=== PATIENT | male | born 1940 | race Caucasian/White ===

== ENCOUNTER 2016-09-02 19:00 | Emergency (ER) | payer MEDICARE, OTHER ==
[2016-09-02] MEDS ORDERED: Sodium Chloride 0.9% 5 ML Syringe FLUSH PRN (19:19)
[2016-09-02] MEDS ORDERED: Morphine 4 MG/ML Syringe IVPUSH ONE (19:20)
[2016-09-02] MEDS ORDERED: Ondansetron 4 MG/2 ML SDV IVPUSH ONE (19:20)
--- NOTE | 2016-09-02 19:26 | EDM.PDOC ---
ED HPI Trauma - General Chief Complaint: Lower Extremity Injury/Pain Stated Complaint: FALL--LEFT HIP PAIN Time Seen by Provider: 09/02/16 19:18 Source: Reports: Patient, Family () History Limitations: Reports: No limitations - History of Present Illness INITIAL COMMENTS - FREE TEXT/NARRATIVE: PT STATES HE FELL WHILE TRYING TO EXIT CAR AND LANDED ON LEFT SIDE. PAIN TO LEFT HIP, LOW BACK, AND LEFT ELBOW. DENIES HEAD INJURY, CP, SOB, DIZZINESS, OR GONZALEZ. Occurred When: just prior to arrival Occurred Where: home Method of Injury: fall Severity: moderate Pain/Injury Location: Reports: upper extremity, left, lower extremity, left Consciousness: Reports: no loss of consciousness Associated Symptoms: Reports: no other symptoms Allergies/ADRs: Allergies piperacillin sodium [From Zosyn] Allergy (Verified 09/02/16 20:08) Rash Pkzzwpi-Ije-Haj Reductase Inhibitor Allergy (Verified 09/02/16 20:08) Liver Problems tazobactam sodium [From Zosyn] Allergy (Verified 09/02/16 20:08) Rash chloroprep Allergy (Unknown, Uncoded 09/02/16 20:08) Rash Home Medications: Ambulatory Orders Albuterol [Ventolin HFA] 2 puff INH Q4H PRN 04/25/13 [Confirmed 07/11/15] Fluticasone Propionate [Flovent HFA 110 MCG] 2 puff INH BID 04/25/13 [Confirmed 07/11/15] Ipratropium/Albuterol Sulfate [Duoneb 0.5 MG-3 MG/3 ML] 3 ml NEB QID PRN [Confirmed 07/11/15] Magnesium 1,000 mg PO DAILY 04/25/13 [Confirmed 07/11/15] Mutivitamin* 1 tab PO DAILY 04/25/13 [Confirmed 07/11/15] Sennosides/Docusate Sodium [Senna S Tablet] 2 tab PO BID PRN 04/29/13 [ Confirmed 07/11/15] Sertraline HCl 100 mg PO DAILY 04/29/13 [Confirmed 07/11/15] Levothyroxine 25 mcg PO ACBREAKFAST 04/28/15 [Confirmed 07/11/15] Omeprazole 20 mg PO DAILY 04/28/15 [Confirmed 07/11/15] Trospium Chloride [Trospium Chloride ER] 60 mg PO DAILY 04/28/15 [Confirmed 03/17] Acetaminophen [Tylenol] 650 mg PO Q6H PRN 07/11/15 [Confirmed 07/11/15] Aspirin 81 mg PO DAILY 07/11/15 [Confirmed 07/11/15] Amoxicillin/Potassium Clav [Amox-Clav 875-125 mg Tablet] 1 each PO BID #90 [Confirmed 07/11/15] hydrOXYzine HCl [Atarax] 25 mg PO Q8HR PRN #25 tablet 07/14/15 Tamsulosin [Flomax] 0.4 mg PO DAILY 09/02/16 [Confirmed 09/02/16] Past Medical History HEENT History: Reports: Hard of hearing, Impaired vision Cardiovascular History: Reports: Pacemaker Other Cardiovascular History: h/o infected pacemaker post liver abcess; 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 Respiratory History: Reports: Asthma, Bronchitis, recurrent Gastrointestinal History: Reports: Cholelithiasis Genitourinary History: Reports: BPH Other Musculoskeletal History: unstable on feet majority of time uses for balance Neurological History: Reports: Vertigo Psychiatric History: Reports: Depression Endocrine/Metabolic History: Reports: Diabetes, type II Hematologic History: Reports: Anemia - Past Surgical History Cardiovascular Surgical History: Reports: Pacer GI Surgical History: Reports: Cholecystectomy Social & Family History - Tobacco Use Smoking Status *Q: Former Smoker Years of Tobacco use: 17 Packs/Tins Daily: 1 Used Tobacco, but Quit: Yes Month Tobacco Last Used: May Second Hand Smoke Exposure: No - Alcohol Use Days Per Week of Alcohol Use: 1 Number of Drinks Per Day: 1 Total Drinks Per Week: 1 - Recreational Drug Use Recreational Drug Use: No - Living Situation & Occupation Living situation: Reports: , with spouse Occupation: retired Review of Systems - Review of Systems Review Of Systems: ROS reveals no pertinent complaints other than HPI. Constitutional: Reports: no symptoms Eyes: Reports: no symptoms Ears: Reports: no symptoms Nose: Reports: no symptoms Mouth/Throat: Reports: no symptoms Respiratory: Reports: No Symptoms Cardiovascular: Reports: no symptoms GI/Abdominal: Reports: No symptoms Genitourinary: Reports: no symptoms Musculoskeletal: Reports: arm pain, back pain, leg pain Skin: Reports: bruising, wound (ABRASION TO LEFT ELBOW) Neurological: Reports: No Symptoms Psychiatric: Reports: no symptoms Trauma Exam - Physical Exam Exam: See Below Exam Limited By: No limitations General Appearance: Reports: alert, WD/WN, no apparent distress Head: Reports: atraumatic, normocephalic Eyes: bilateral eye: normal inspection Ears: Reports: normal external exam, normal canal Nose: Reports: normal inspection, no blood Throat/Mouth: Reports: Normal inspection, Normal oropharynx, No airway compromise Neck: Reports: non-tender, full range of motion, normal alignment, normal inspection Respiratory Exam: Reports: no respiratory distress, lungs clear, normal breath sounds, no accessory muscle use, chest non-tender Cardiovascular: Reports: regular rate, rhythm GI/Abdominal: Reports: soft, non tender, no distention Back: Reports: paraspinal tenderness, other (DENIES SADDLE ANESTHESIA, URINARY OR BOWEL INCONT). Denies: CVA tenderness (R), CVA tenderness (L) Extremities: Reports: no pedal edema, pain with movement, tenderness (LEFT HIP / LEFT ELBOW / PELVIS STABLE), unable to bear weight, other (NO NEUROVASCULAR DEFICIT OR COMPARTMENT SYNDROME NOTED.). Denies: no evidence of injury, normal range of motion, non-tender Neurologic: Reports: no motor/sensory deficits, alert, normal mood/affect, oriented x 3 Skin: Reports: Normal color, Warm/dry, Other (ABRASION TO POSTERIOR LEFT ELBOW) - [place] Coma Score Best Eye Response ([place]): (4) open spontaneously Best Verbal Response ([place]): (5) oriented Best Motor Response ([place]): (6) obeys commands [place] Total: 15 Course - Orders/Labs/Meds Orders: Active Orders 24 hr Category Date Time Status Peripheral IV Care [RC] . DIRECTED Care 09/02/16 19:20 Ordered Elbow 2V Lt [CR] Stat Exams 09/02/16 19:19 Ordered Hip Min 2V or 3V w Pelvis Lt [CR] Stat Exams 09/02/16 19:19 Ordered Morphine Med 09/02/16 19:20 Once 4 mg IVPUSH ONETIME ONE Ondansetron [Zofran] Med 09/02/16 19:20 Once 4 mg IVPUSH ONETIME ONE Sodium Chloride 0.9% [Syrex Flush] Med 09/02/16 19:19 Ordered 5 ml FLUSH Q8HR PRN Peripheral IV Insertion Adult [OM.PC] Routine Oth 09/02/16 19:19 Ordered - Radiology Interpretation Free Text/Narrative:: ACUTE DISPLACED LEFT FEMORAL NECK FRACTURE - Re-Assessments/Exams Free Text/Narrative Re-Assessment/Exam: 09/02/16 20:12 PT AFEBRILE, NONTOXIC APPEARING, PAIN CONTROLLED. DISCUSSED CASE WITH DR SANTANA, HOSPITALIST AT [facility]. WILL ACCEPT TRANSFER OF CARE Departure - Departure Time of Disposition: 20:15 Disposition: DC/Tfer to Acute Hospital 02 Condition: fair Clinical Impression: Hip fracture, intertrochanteric Qualifiers: Encounter type: initial encounter Fracture type: closed Fracture alignment: displaced Laterality: left Qualified Code(s): S72.142A - Displaced intertrochanteric fracture of left femur, initial encounter for closed fracture - My Orders Last 24 Hours: My Active Orders 09/02/16 19:19 Elbow 2V Lt [CR] Stat Hip Min 2V or 3V w Pelvis Lt [CR] Stat Sodium Chloride 0.9% [Syrex Flush] 5 ml FLUSH Q8HR PRN Peripheral IV Insertion Adult [OM.PC] Routine 09/02/16 19:20 Peripheral IV Care [RC] . DIRECTED Morphine 4 mg IVPUSH ONETIME ONE Ondansetron [Zofran] 4 mg IVPUSH ONETIME ONE - Assessment/Plan Last 24 Hours: My Active Orders 09/02/16 19:19 Elbow 2V Lt [CR] Stat Hip Min 2V or 3V w Pelvis Lt [CR] Stat Sodium Chloride 0.9% [Syrex Flush] 5 ml FLUSH Q8HR PRN Peripheral IV Insertion Adult [OM.PC] Routine 09/02/16 19:20 Peripheral IV Care [RC] . DIRECTED Morphine 4 mg IVPUSH ONETIME ONE Ondansetron [Zofran] 4 mg IVPUSH ONETIME ONE Assessment:: LEFT HIP FRACTURE Plan: TRANSFER TO [facility]
[2016-09-02 20:14] VITALS: BP 137/76
[2016-09-02] MEDS ORDERED: Morphine 2 MG/ML Syringe IVPUSH ONE (20:22)
== END 2016-09-02 20:45 ==
LOC: KA.ED 19:00
DX: S72.142A Displaced intertrochanteric fracture of left femur, initial encounter for closed fracture (principal); J45.909 Unspecified asthma, uncomplicated; F32.9 Major depressive disorder, single episode, unspecified; E11.9 Type 2 diabetes mellitus without complications; D64.9 Anemia, unspecified; Z90.49 Acquired absence of other specified parts of digestive tract; Z87.891 Personal history of nicotine dependence; Z88.8 Allergy status to other drugs, medicaments and biological substances; Z79.82 Long term (current) use of aspirin; Z79.899 Other long term (current) drug therapy; W19.XXXA Unspecified fall, initial encounter
CPT/HCPCS: 36415; 72100; 73070; 73502; 80053; 85025; 85610; 85730; 96374; 96375; 96376; 99285; J2270; J2405

== ENCOUNTER 2016-09-06 15:34 | Inpatient (IN) | payer MEDICARE, OTHER ==
[2016-09-07] MEDS ORDERED: oxyCODONE 5 MG Tab PO PRN (13:46)
[2016-09-07] MEDS: Gabapentin 100 MG Cap PO SCH ×2 (16:03→22:20)
[2016-09-07] MEDS: Ferrous Sulfate 325 MG Tab PO SCH (18:30)
[2016-09-07] MEDS ORDERED: Albuterol/Ipratropium 3.0-0.5 MG/3 ML Neb Soln NEB PRN (20:53)
[2016-09-07] MEDS ORDERED: Amoxicillin/Clavulanate K 875-125 MG Tab PO SCH (21:00)
[2016-09-07] MEDS ORDERED: Albuterol HFA 18 Gm Inhaler INH PRN (21:07)
[2016-09-07] MEDS: Fluticasone Propionate 110 MCG/Puff 12 GM Inhaler INH SCH (21:46)
[2016-09-07] MEDS: Tamsulosin 0.4 MG Cap.ER PO SCH (22:20)
[2016-09-08] MEDS: Levothyroxine 25 MCG Tab PO SCH (06:54)
[2016-09-08] MEDS: Omeprazole 20 MG Cap.CR PO SCH (06:54)
[2016-09-08] MEDS ORDERED: Tamsulosin 0.4 MG Cap.ER PO SCH (09:00)
[2016-09-08] MEDS ORDERED: TROSPIUM 60 MG PO SCH (09:00)
[2016-09-08] MEDS: Polyethylene Glycol 3350 Powder 17 GM Packet PO SCH (09:34)
[2016-09-08] MEDS: Enoxaparin 40 MG/0.4 ML Syringe SUBCUT SCH (09:34)
[2016-09-08] MEDS: Ferrous Sulfate 325 MG Tab PO SCH ×2 (09:34→18:23)
[2016-09-08] MEDS: Gabapentin 100 MG Cap PO SCH ×3 (09:34→20:36)
[2016-09-08] MEDS: Sertraline 50 MG Tab PO SCH (09:41)
[2016-09-08] MEDS: Fluticasone Propionate 110 MCG/Puff 12 GM Inhaler INH SCH ×2 (09:42→20:37)
[2016-09-08] MEDS: Multivitamins with Minerals/Iron/Folic Acid/Lycopene Tab PO SCH (09:42)
[2016-09-08] MEDS: Amoxicillin/Clavulanate K 875-125 MG Tab PO SCH ×2 (09:42→18:23)
[2016-09-08] MEDS: Aspirin 81 MG Tab.Chew PO SCH (09:42)
[2016-09-08] MEDS: oxyCODONE 5 MG Tab PO PRN (11:32)
[2016-09-08] MEDS: Acetaminophen 325 MG Tab PO PRN (11:33)
--- NOTE | 2016-09-08 11:55 | PCM.HP ---
H&P History of Present Illness - General Date of Service: 09/08/16 Admit Problem/Dx: Admission Diagnosis/Problem Admission Diagnosis/Problem Fracture of neck of femur Source of Information: Patient, Family, Old records, RN History Limitations: Reports: No limitations - History of Present Illness Initial Comments - Free Text/Narative: This 76-year-old gentleman was placed in swing bed status yesterday for rehabilitation do to hip replacement after subsequent fracture. Gentry was initially seen at [facility] after a fall and injured his left side of the body. The patient was coming out of the car and made a sudden twist and had a fall on the left side and injured his left hip-- imaging done demonstrated left femur neck fracture. During his hospital stay postoperatively he had acute blood loss anemia. Hemoglobin dropped to 7.5 from his baseline of 13--with weakness and he received one unit of packed red blood cells. posttransfusion hemoglobin improved to 9.5. Left Hip Pain Score (Numeric/FACES): 3 - Related Data Allergies/Adverse Reactions: Allergies Allergy/AdvReac Type Severity Reaction Status Date / Time piperacillin sodium Allergy Rash Verified 09/07/16 11:03 [From Zosyn] Mwfeyax-Opj-Adk Reductase Allergy Liver Verified 09/07/16 11:03 Inhibitor Problems tazobactam sodium Allergy Rash Verified 09/07/16 11:03 [From Zosyn] chloroprep Allergy Unknown Rash Uncoded 09/07/16 11:03 Home Medications: Home Meds Albuterol [Ventolin HFA] 2 puff INH Q4H PRN 04/25/13 [History] Fluticasone Propionate [Flovent HFA 110 MCG] 2 puff INH BID 04/25/13 [History] Ipratropium/Albuterol Sulfate [Duoneb 0.5 MG-3 MG/3 ML] 3 ml NEB QID PRN [History] Magnesium 1,000 mg PO DAILY 04/25/13 [History] Mutivitamin* 1 tab PO DAILY 04/25/13 [History] Sertraline HCl 100 mg PO DAILY 04/29/13 [History] Levothyroxine 25 mcg PO ACBREAKFAST 04/28/15 [History] Omeprazole 20 mg PO ACBREAKFAST 04/28/15 [History] Trospium Chloride [Trospium Chloride ER] 60 mg PO DAILY 04/28/15 [History] Aspirin 81 mg PO DAILY 07/11/15 [History] Amoxicillin/Potassium Clav [Amox-Clav 875-125 mg Tablet] 1 each PO BID #90 [Rx] Tamsulosin [Flomax] 0.4 mg PO DAILY 09/02/16 [History] Past Medical History HEENT History: Reports: Hard of hearing, Impaired vision Cardiovascular History: Reports: Pacemaker Other Cardiovascular History: h/o infected pacemaker post liver abcess; 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 Respiratory History: Reports: Asthma, Bronchitis, recurrent, COPD Gastrointestinal History: Reports: Cholelithiasis, GI bleed, Hemorrhoids Genitourinary History: Reports: BPH Other Musculoskeletal History: unstable on feet majority of time uses for balance Neurological History: Reports: Vertigo Psychiatric History: Reports: Depression Endocrine/Metabolic History: Reports: Other (see below) Other Endocrine/Metabolic History: has hx DM II but since losing weight, does not need to take any meds for it Hematologic History: Reports: Anemia Dermatologic History: Reports: Other (see below) Other Dermatologic History: scattered bruises to bilat elbows and forearms from fall; 2 healing abrasions to left elbow - Infectious Disease History Infectious Disease History: Reports: Chicken pox, Measles, Mumps - Past Surgical History Cardiovascular Surgical History: Reports: Pacer GI Surgical History: Reports: Cholecystectomy Musculoskeletal Surgical History: Reports: Joint replacement, Other (see below) Other Musculoskeletal Surgeries/Procedures:: left hip replacement after a displaced left femoral neck fracture on 09/03 Social & Family History - Family History HEENT: Reports: None Cardiac: Reports: None Respiratory: Reports: Other (see below) (Father of emphysema, had brother of it is in the) GI: Reports: Other (see below) (Sister with a ruptured colon: History) : Reports: None OBGYN: Reports: None Musculoskeletal: Reports: None Neurological: Reports: None Psychiatric: Reports: None Endocrine/Metabolic: Reports: None Hematologic: Reports: None Immunologic: Reports: None Dermatologic: Reports: None Oncologic: Reports: None - Tobacco Use Smoking Status *Q: Former Smoker Years of Tobacco use: 17 Packs/Tins Daily: 1 Used Tobacco, but Quit: Yes Month Tobacco Last Used: May Second Hand Smoke Exposure: No - Caffeine Use Caffeine Use: Reports: Coffee - Alcohol Use Days Per Week of Alcohol Use: 1 Number of Drinks Per Day: 1 Total Drinks Per Week: 1 - Recreational Drug Use Recreational Drug Use: No - Living Situation & Occupation Living situation: Reports: , with spouse Occupation: retired H&P Review of Systems - Review of Systems: Review Of Systems: See Below General: Denies: Decreased Appetite HEENT: Reports: no symptoms Pulmonary: Reports: No Symptoms Cardiovascular: Reports: no symptoms Gastrointestinal: Denies: Abdominal pain, Bloody stool, Constipation, Diarrhea, Decreased appetite, Difficulty swallowing, Nausea, Stool incontinence, Vomiting Genitourinary: Reports: no symptoms Musculoskeletal: Reports: other (Left hip pain--mild) Skin: Reports: pallor Psychiatric: Reports: no symptoms Neurological: Reports: Pre-Existing Deficit, Weakness. Denies: Numbness, Paresthesia Hematologic/Lymphatic: Reports: anemia Immunologic: Reports: no symptoms Exam - Exam Exam: See Below - Vital Signs Vital Signs: Last Vital Signs Temp 97.3 F 09/08/16 07:00 Pulse 78 09/08/16 07:00 Resp 22 H 09/08/16 07:00 BP 134/71 09/08/16 07:00 Pulse Ox 96 09/08/16 07:30 Weight: 199 lb 12.8 oz - Exam Quality Assessment: No: supplemental oxygen General: alert, oriented, 4 HEENT: PERRLA, Hearing intact, Mucosa moist & pink, Nares patent, Normal nasal septum, Posterior pharynx clear, Conjunctiva clear, EOMI, EACs clear, TMs clear Neck: supple, trachea midline, 2 Lungs: Clear to auscultation, Normal respiratory effort Cardiovascular: regular rate, regular rhythm Abdomen: Normal Bowel Sounds, Soft (Male) Exam: Deferred Rectal (Males) Exam: Deferred Back Exam: No: CVA tenderness (L), CVA tenderness (R), muscle spasm Extremities: cool Peripheral Pulses: 2+: radial (L), radial (R) Skin: warm, dry, intact, incision (Miky left hip contact) Neurological: cranial nerves intact, reflexes equal bilateral Neuro Extensive - Mental Status: alert, oriented x3, normal mood/affect, normal cognition Neuro Extensive - Motor, Sensory, Reflexes: CN II-XII intact, normal gait, normal reflexes Psychiatric: alert, normal affect, normal mood, other (Spouse in with patient-- excellent family support) - Patient Data Lab Results last 24 hrs: Laboratory Results - last 24 hr 09/07/16 09/07/16 09/08/16 Range/Units 17:33 22:23 06:52 POC Glucose 130 H 171 H 114 H (74-106) mg/dl *Q Meaningful Use (ADM) - VTE *Q VTE Criteria *Q: - Stroke *Q Stroke Criteria *Q: - AMI *Q AMI Criteria *Q: Problem List Initiated/Reviewed/Updated: Yes Orders Last 24hrs: Active Orders 24 hr Category Date Time Status Patient Status [ADT] Routine ADT 09/07/16 13:46 Ordered Ambulate [RC] .PRN Care 09/07/16 13:46 Active Blood Glucose Check, Bedside [RC] 0700,1130,1730,2100 Care 09/07/16 13:46 Active Communication Order [RC] 0900 Care 09/07/16 15:50 Active Communication Order [RC] DAILY Care 09/07/16 14:15 Inactive Communication Order [RC] DAILY Care 09/07/16 14:15 Inactive Dressing Change [Wound Care] [RC] 0900 Care 09/08/16 09:00 Active Intake and Output [RC] 0600,1400,2200 Care 09/07/16 13:53 Active Oxygen Therapy [RC] .PRN Care 09/07/16 13:46 Active Up With Assistance [RC] .PRN Care 09/07/16 13:46 Active Vital Signs [RC] 0700,1500 Care 09/07/16 13:46 Active PT Evaluation and Treatment [CONS] Routine Cons 09/07/16 13:46 Active Regular Diet [DIET] Diet 09/08/16 Lunch Active Acetaminophen [Tylenol] Med 09/07/16 13:46 Active 650 mg PO Q6H PRN Albuterol [Ventolin HFA] Med 09/07/16 21:07 Active 0 gm INH Q4H PRN Albuterol/Ipratropium [DuoNeb 3.0-0.5 MG/3 ML] Med 09/07/16 20:53 Active 3 ml NEB QID PRN Amoxicillin/Clavulanate K [Augmentin 875 MG/125 MG] Med 09/08/16 09:00 Active 1 tab PO 0900,1800 Aspirin Med 09/08/16 09:00 Active 81 mg PO DAILY Codeine/guaiFENesin [Robitussin AC] Med 09/07/16 14:16 Active 10 ml PO Q4H PRN Docusate Sodium/Sennosides [Senna Plus] Med 09/08/16 09:00 Active 2 tab PO DAILY Enoxaparin [Lovenox] Med 09/08/16 09:00 Active 40 mg SUBCUT DAILY FA/Lycopene/Lut/MV,Ca,Iron,Min [Centrum] Med 09/08/16 09:00 Active 1 tab PO DAILY Ferrous Sulfate Med 09/07/16 18:00 Active 325 mg PO BIDMEALS Fluticasone Propionate [Flovent HFA 110 MCG] Med 09/07/16 21:00 Active 0 gm INH BIDRT Gabapentin [Neurontin] Med 09/07/16 15:00 Active 100 mg PO TID Levothyroxine Med 09/08/16 07:00 Active 25 mcg PO ACBREAKFAST Magnesium Oxide Med 09/08/16 09:00 Active 1,000 mg PO DAILY Omeprazole Med 09/08/16 07:00 Active 20 mg PO ACBREAKFAST Polyethylene Glycol 3350 [MiraLAX] Med 09/08/16 09:00 Active 17 gm PO DAILY Sertraline [Zoloft] Med 09/08/16 09:00 Active 100 mg PO DAILY Tamsulosin [Flomax] Med 09/07/16 21:54 Active 0.4 mg PO 1800 Trospium [Sanctura XR 24 Hr] Med 09/08/16 07:00 Active 60 mg PO 0700 oxyCODONE Med 09/07/16 13:46 Active 5 - 10 mg PO Q4H PRN Glucose Management Sub Q Reflex [OM.PC] Click To Edit Oth 09/07/16 13:46 Ordered Ice Therapy [OM.PC] Routine Oth 09/07/16 14:18 Ordered Resuscitation Status Routine Resus Stat 09/07/16 13:46 Ordered Medication Orders Acetaminophen (Tylenol) 650 mg PO Q6H PRN PRN Reason: Pain (Mild 1-3)/fever Last Admin: 09/08/16 11:33 Dose: 650 mg Albuterol (Ventolin Hfa) 0 gm INH Q4H PRN PRN Reason: Shortness of Breath Albuterol/Ipratropium (Duoneb 3.0-0.5 Mg/3 Ml) 3 ml NEB QID PRN PRN Reason: Wheezing Amoxicillin/Clavulanate Potassium (Augmentin 875 Mg/125 Mg) 1 tab PO 0900,1800 [facility] Last Admin: 09/08/16 09:42 Dose: 1 tab Aspirin (Aspirin) 81 mg PO DAILY [facility] Last Admin: 09/08/16 09:42 Dose: 81 mg Enoxaparin Sodium (Lovenox) 40 mg SUBCUT DAILY [facility] Last Admin: 09/08/16 09:34 Dose: 40 mg Ferrous Sulfate (Ferrous Sulfate) 325 mg PO BIDMEALS [facility] Last Admin: 09/08/16 09:34 Dose: 325 mg Admin: 09/07/16 18:30 Dose: 325 mg Fluticasone Propionate (Flovent Hfa 110 Mcg) 0 gm INH BIDRT [facility] Last Admin: 09/08/16 09:42 Dose: 2 puff Admin: 09/07/16 21:46 Dose: Not Given Gabapentin (Neurontin) 100 mg PO TID [facility] Last Admin: 09/08/16 09:34 Dose: 100 mg Admin: 09/07/16 22:20 Dose: 100 mg Admin: 09/07/16 16:03 Dose: 100 mg Guaifenesin/Codeine Phosphate (Robitussin Ac) 10 ml PO Q4H PRN PRN Reason: Cough Levothyroxine Sodium (Levothyroxine) 25 mcg PO ACBREAKFAST [facility] Last Admin: 09/08/16 06:54 Dose: 25 mcg Magnesium Oxide (Magnesium Oxide) 1,000 mg PO DAILY [facility] Multivitamins/Minerals (Centrum) 1 tab PO DAILY [facility] Last Admin: 09/08/16 09:42 Dose: 1 tab Omeprazole (Omeprazole) 20 mg PO ACBREAKFAST [facility] Last Admin: 09/08/16 06:54 Dose: 20 mg Oxycodone HCl (Oxycodone) 5 - 10 mg PO Q4H PRN PRN Reason: mod pain (4-6); Severe (7-10) Last Admin: 09/08/16 11:32 Dose: 5 mg Polyethylene Glycol (Miralax) 17 gm PO DAILY [facility] Last Admin: 09/08/16 09:34 Dose: Not Given Senna/Docusate Sodium (Senna Plus) 2 tab PO DAILY [facility] Last Admin: 09/08/16 09:35 Dose: 2 tab Sertraline HCl (Zoloft) 100 mg PO DAILY [facility] Last Admin: 09/08/16 09:41 Dose: 100 mg Tamsulosin HCl (Flomax) 0.4 mg PO 1800 [facility] Last Admin: 09/07/16 22:20 Dose: 0.4 mg Trospium (Sanctura Xr 24 Hr) 60 mg PO 0700 [facility] Assessment/Plan Comment:: HISTORY OF PRESENT ILLNESS This 76-year-old gentleman was placed in swing bed status yesterday for rehabilitation do to hip replacement after subsequent fracture. Gentry was initially seen at [facility] after a fall and injured his left side of the body. The patient was coming out of the car and made a sudden twist and had a fall on the left side and injured his left hip-- imaging done demonstrated left femur neck fracture. During his hospital stay postoperatively he had acute blood loss anemia. Hemoglobin dropped to 7.5 from his baseline of 13--with weakness and he received one unit of packed red blood cells. posttransfusion hemoglobin improved to 9.5. PT notes; Pt was independent with transfer supine to seated edge of bed. He was safe with amb CGAx1. Cuing was needed corrected step to gait. ASSESSMENT/PLAN Left femur neck fracture, s/p total hip arthroplasty--do to mechanical fall, here at [facility] swing bed for orthopedic rehabilitation. Anemia, due to blood loss, status post transfusion; post-transfusion hemoglobin improved to 9.5. Will closely monitor Chronic hyperkalemia on discharge the patient was placed on strict low potassium diet however patient is refusing this. We'll monitor this very carefully. DVT prophylaxis, will continue with enoxaparin x 14 more days. SECONDARY DIAGNOSIS Mixed hyperlipidemia Diabetes mellitus Chronic kidney disease Cardiac pacemaker History of endocarditis Recurrent cholangitis--elevated liver enzymes--will assess this week GERD Hypothyroidism, acquired Panlobular emphysema BPH
[2016-09-08] MEDS: Magnesium Oxide 500 MG Tab PO SCH (11:57)
[2016-09-08] MEDS: TROSPIUM 60 MG PO SCH (14:15)
[2016-09-08] MEDS: Tamsulosin 0.4 MG Cap.ER PO SCH (18:23)
[2016-09-09] MEDS: oxyCODONE 5 MG Tab PO PRN ×3 (06:24→22:36)
[2016-09-09] MEDS: Levothyroxine 25 MCG Tab PO SCH (06:25)
[2016-09-09] MEDS: Omeprazole 20 MG Cap.CR PO SCH (06:26)
[2016-09-09] MEDS: TROSPIUM 60 MG PO SCH (06:27)
[2016-09-09] MEDS: Ferrous Sulfate 325 MG Tab PO SCH ×2 (09:33→18:15)
[2016-09-09] MEDS: Aspirin 81 MG Tab.Chew PO SCH (09:34)
[2016-09-09] MEDS: Multivitamins with Minerals/Iron/Folic Acid/Lycopene Tab PO SCH (09:34)
[2016-09-09] MEDS: Amoxicillin/Clavulanate K 875-125 MG Tab PO SCH ×2 (09:34→18:15)
[2016-09-09] MEDS: Magnesium Oxide 500 MG Tab PO SCH (09:34)
[2016-09-09] MEDS: Enoxaparin 40 MG/0.4 ML Syringe SUBCUT SCH (09:34)
[2016-09-09] MEDS: Sertraline 50 MG Tab PO SCH (09:35)
[2016-09-09] MEDS: Gabapentin 100 MG Cap PO SCH ×3 (09:35→22:32)
[2016-09-09] MEDS: Polyethylene Glycol 3350 Powder 17 GM Packet PO SCH (09:35)
[2016-09-09] MEDS: Fluticasone Propionate 110 MCG/Puff 12 GM Inhaler INH SCH ×2 (09:38→22:29)
[2016-09-09] MEDS: Acetaminophen 325 MG Tab PO PRN (12:57)
[2016-09-09] MEDS: Tamsulosin 0.4 MG Cap.ER PO SCH (18:16)
[2016-09-10] MEDS: Levothyroxine 25 MCG Tab PO SCH (06:09)
[2016-09-10] MEDS: Omeprazole 20 MG Cap.CR PO SCH (06:10)
[2016-09-10] MEDS: TROSPIUM 60 MG PO SCH (06:10)
[2016-09-10] MEDS: oxyCODONE 5 MG Tab PO PRN ×3 (06:13→15:25)
[2016-09-10] MEDS: Magnesium Oxide 500 MG Tab PO SCH (08:55)
[2016-09-10] MEDS: Multivitamins with Minerals/Iron/Folic Acid/Lycopene Tab PO SCH (08:55)
[2016-09-10] MEDS: Amoxicillin/Clavulanate K 875-125 MG Tab PO SCH ×2 (08:55→17:39)
[2016-09-10] MEDS: Ferrous Sulfate 325 MG Tab PO SCH ×2 (08:55→17:39)
[2016-09-10] MEDS: Aspirin 81 MG Tab.Chew PO SCH (08:55)
[2016-09-10] MEDS: Enoxaparin 40 MG/0.4 ML Syringe SUBCUT SCH (08:56)
[2016-09-10] MEDS: Gabapentin 100 MG Cap PO SCH ×3 (08:56→20:27)
[2016-09-10] MEDS: Sertraline 50 MG Tab PO SCH (08:56)
[2016-09-10] MEDS: Polyethylene Glycol 3350 Powder 17 GM Packet PO SCH (08:56)
[2016-09-10] MEDS: Fluticasone Propionate 110 MCG/Puff 12 GM Inhaler INH SCH ×2 (09:24→20:27)
--- NOTE | 2016-09-10 11:01 | PCM.PN ---
- General Info Date of Service: 09/10/16 Functional Status: Reports: pain controlled, tolerating diet. Denies: new symptoms - Review of Systems General: Denies: Fever, Weakness, Fatigue, Chills Pulmonary: Reports: no symptoms Cardiovascular: Reports: No Symptoms Gastrointestinal: Reports: No symptoms Genitourinary: Reports: no symptoms Musculoskeletal: Reports: other (Mild left hip pain--good level of function) Skin: Reports: pallor, bruising (Left hip area however no drainage) Neurological: Reports: No Symptoms Psychiatric: Reports: no symptoms - Patient Data Vitals - most recent: Last Vital Signs Temp 97.2 F 09/10/16 06:44 Pulse 80 09/10/16 09:24 Resp 18 09/10/16 06:44 BP 117/72 09/10/16 06:44 Pulse Ox 96 09/10/16 06:44 Weight - most recent: 199 lb 12.8 oz I&O - last 24 hours: Intake & Output 09/09/16 09/10/16 09/10/16 22:59 06:59 14:59 Intake Total 610 150 Output Total 200 300 Balance 410 -150 Lab Results last 24 hrs: Laboratory Results - last 24 hr 09/09/16 09/09/16 09/10/16 Range/Units 06:22 18:00 05:46 WBC (5.0-10.0) 10^3/uL RBC (4.50-6.00) 10^6/uL Hgb (13.0-17.0) g/dL Hct (40.0-52.0) % MCV (82.0-92.0) fL MCH (27.0-31.0) pg MCHC (32.0-36.0) g/dL RDW (11.5-14.5) % Plt Count (150-300) 10^3/uL MPV (7.4-10.4) fL Neut % (Auto) (50.0-70.0) % Lymph % (Auto) (20.0-40.0) % [place] % (Auto) (2.0-8.0) % Eos % (Auto) (1.0-3.0) % Baso % (Auto) (0.0-1.0) % Neut # (Auto) (2.5-7.0) 10^3/uL Lymph # (Auto) (1.0-4.0) 10^3/uL [place] # (Auto) (0.1-0.8) 10^3/uL Eos # (Auto) (0.1-0.3) 10^3/uL Baso # (Auto) (0.0-0.1) 10^3/uL Sodium (136-145) mmol/L Potassium (3.3-5.3) mmol/L Chloride (98-115) mmol/L Carbon Dioxide (21.0-32.0) mmol/L BUN (6-25) mg/dL Creatinine (0.51-1.17) mg/dL Est Cr Clr Drug Dosing mL/min Estimated GFR (MDRD) mL/min Glucose (70-110) mg/dL POC Glucose 159 H 148 H 118 H (74-106) mg/dl Calcium (8.7-10.3) mg/dL Total Bilirubin (0.2-1.0) mg/dL Direct Bilirubin (0.0-0.2) mg/dL AST (15-37) U/L ALT (12-78) U/L Alkaline Phosphatase (46-116) IU/L Total Protein (6.4-8.2) g/dL Albumin (3.00-4.80) g/dL 09/10/16 09/10/16 Range/Units 07:20 07:20 WBC 7.0 (5.0-10.0) 10^3/uL RBC 3.08 L (4.50-6.00) 10^6/uL Hgb 9.3 L (13.0-17.0) g/dL Hct 27.5 L (40.0-52.0) % MCV 89.1 (82.0-92.0) fL MCH 30.0 (27.0-31.0) pg MCHC 33.7 (32.0-36.0) g/dL RDW 13.8 (11.5-14.5) % Plt Count 252 (150-300) 10^3/uL MPV 6.0 L (7.4-10.4) fL Neut % (Auto) 76.5 H (50.0-70.0) % Lymph % (Auto) 7.1 L (20.0-40.0) % [place] % (Auto) 11.2 H (2.0-8.0) % Eos % (Auto) 4.3 H (1.0-3.0) % Baso % (Auto) 0.9 (0.0-1.0) % Neut # (Auto) 5.3 (2.5-7.0) 10^3/uL Lymph # (Auto) 0.5 L (1.0-4.0) 10^3/uL [place] # (Auto) 0.8 (0.1-0.8) 10^3/uL Eos # (Auto) 0.3 (0.1-0.3) 10^3/uL Baso # (Auto) 0.1 (0.0-0.1) 10^3/uL Sodium 135 L (136-145) mmol/L Potassium 5.1 (3.3-5.3) mmol/L Chloride 101 (98-115) mmol/L Carbon Dioxide 28.2 (21.0-32.0) mmol/L BUN 39 H (6-25) mg/dL Creatinine 1.20 H (0.51-1.17) mg/dL Est Cr Clr Drug Dosing 51.55 mL/min Estimated GFR (MDRD) 59 mL/min Glucose 124 H (70-110) mg/dL POC Glucose (74-106) mg/dl Calcium 8.2 L (8.7-10.3) mg/dL Total Bilirubin 0.7 (0.2-1.0) mg/dL Direct Bilirubin 0.2 (0.0-0.2) mg/dL AST 76 H (15-37) U/L ALT 90 H (12-78) U/L Alkaline Phosphatase 676 H (46-116) IU/L Total Protein 5.8 L (6.4-8.2) g/dL Albumin 2.29 L (3.00-4.80) g/dL Gregory Results last 24 hrs: Microbiology 09/08/16 17:30 Wound Culture - Preliminary Hip, Left NO GROWTH AFTER 2 DAYS Med Orders - Current: Current Medications Acetaminophen (Tylenol) 650 mg PO Q6H PRN PRN Reason: Pain (Mild 1-3)/fever Last Admin: 09/09/16 12:57 Dose: 650 mg Albuterol (Ventolin Hfa) 0 gm INH Q4H PRN PRN Reason: Shortness of Breath Albuterol/Ipratropium (Duoneb 3.0-0.5 Mg/3 Ml) 3 ml NEB QID PRN PRN Reason: Wheezing Amoxicillin/Clavulanate Potassium (Augmentin 875 Mg/125 Mg) 1 tab PO 0900,1800 [facility] Last Admin: 09/10/16 08:55 Dose: 1 tab Aspirin (Aspirin) 81 mg PO DAILY [facility] Last Admin: 09/10/16 08:55 Dose: 81 mg Enoxaparin Sodium (Lovenox) 40 mg SUBCUT DAILY [facility] Last Admin: 09/10/16 08:56 Dose: 40 mg Ferrous Sulfate (Ferrous Sulfate) 325 mg PO BIDMEALS [facility] Last Admin: 09/10/16 08:55 Dose: 325 mg Fluticasone Propionate (Flovent Hfa 110 Mcg) 0 gm INH BIDRT [facility] Last Admin: 09/10/16 09:24 Dose: 2 puff Gabapentin (Neurontin) 100 mg PO TID [facility] Last Admin: 09/10/16 08:56 Dose: 100 mg Guaifenesin/Codeine Phosphate (Robitussin Ac) 10 ml PO Q4H PRN PRN Reason: Cough Levothyroxine Sodium (Levothyroxine) 25 mcg PO ACBREAKFAST [facility] Last Admin: 09/10/16 06:09 Dose: 25 mcg Magnesium Oxide (Magnesium Oxide) 1,000 mg PO DAILY [facility] Last Admin: 09/10/16 08:55 Dose: 1,000 mg Multivitamins/Minerals (Centrum) 1 tab PO DAILY [facility] Last Admin: 09/10/16 08:55 Dose: 1 tab Omeprazole (Omeprazole) 20 mg PO ACBREAKFAST [facility] Last Admin: 09/10/16 06:10 Dose: 20 mg Oxycodone HCl (Oxycodone) 5 - 10 mg PO Q4H PRN PRN Reason: mod pain (4-6); Severe (7-10) Last Admin: 09/10/16 10:52 Dose: 5 mg Polyethylene Glycol (Miralax) 17 gm PO DAILY [facility] Last Admin: 09/10/16 08:56 Dose: 17 gm Senna/Docusate Sodium (Senna Plus) 2 tab PO DAILY [facility] Last Admin: 09/10/16 08:56 Dose: 2 tab Sertraline HCl (Zoloft) 100 mg PO DAILY [facility] Last Admin: 09/10/16 08:56 Dose: 100 mg Tamsulosin HCl (Flomax) 0.4 mg PO 1800 [facility] Last Admin: 09/09/16 18:16 Dose: 0.4 mg Trospium (Sanctura Xr 24 Hr) 60 mg PO 0700 [facility] Last Admin: 09/10/16 06:10 Dose: 60 mg Discontinued Medications Amoxicillin/Clavulanate Potassium (Augmentin 875 Mg/125 Mg) 1 tab PO BID [facility] Last Admin: 09/07/16 21:00 Dose: Not Given Tamsulosin HCl (Flomax) 0.4 mg PO DAILY [facility] Trospium (Sanctura Xr 24 Hr) 60 mg PO DAILY [facility] - Exam Quality Assessment: No: supplemental oxygen General: alert, oriented Neck: supple Lungs: Clear to auscultation, Normal respiratory effort Cardiovascular: Regular Rate, Regular Rhythm Skin: warm, dry, intact Wound/Incisions: healing well, dressing dry and intact, no drainage, other (No socorro,). No: drainage, erythema Psy/Mental Status: alert, normal affect, normal mood - Problem List Review Problem List Initiated/Reviewed/Updated: Yes - Plan Plan:: HISTORY OF PRESENT ILLNESS This 76-year-old gentleman was placed in swing bed status yesterday for rehabilitation do to hip replacement after subsequent fracture. Gentry was initially seen at [facility] after a fall and injured his left side of the body. The patient was coming out of the car and made a sudden twist and had a fall on the left side and injured his left hip-- imaging done demonstrated left femur neck fracture. During his hospital stay postoperatively he had acute blood loss anemia. Hemoglobin dropped to 7.5 from his baseline of 13--with weakness and he received one unit of packed red blood cells. posttransfusion hemoglobin improved to 9.5. PT notes; Pt was independent with transfer supine to seated edge of bed. He was safe with amb CGAx1. Cuing was needed corrected step to gait. ASSESSMENT/PLAN Left femur neck fracture, s/p total hip arthroplasty--related to mechanical fall , here at [facility] swing bed for orthopedic rehabilitation. Anemia, due to blood loss, status post transfusion; post-transfusion hemoglobin improved to 9.5. Will closely monitor Chronic hyperkalemia on discharge the patient was placed on strict low potassium diet however patient is refusing this. We'll monitor this very carefully. Elevated alkaline phosphatase--with history of Recurrent cholangitis, on prophylactic antibiotics, no jaundice or fever, pain, doubtful etiology however we'll carefully monitor these enzymes. DVT prophylaxis, will continue with enoxaparin x 12 more days. SECONDARY DIAGNOSIS Mixed hyperlipidemia Diabetes mellitus Chronic kidney disease Cardiac pacemaker History of endocarditis GERD Hypothyroidism, acquired Panlobular emphysema BPH
[2016-09-10] MEDS: Acetaminophen 325 MG Tab PO PRN (17:39)
[2016-09-10] MEDS: Tamsulosin 0.4 MG Cap.ER PO SCH (17:39)
[2016-09-11] MEDS: Levothyroxine 25 MCG Tab PO SCH (06:24)
[2016-09-11] MEDS: TROSPIUM 60 MG PO SCH (06:25)
[2016-09-11] MEDS: Omeprazole 20 MG Cap.CR PO SCH (06:25)
[2016-09-11] MEDS: oxyCODONE 5 MG Tab PO PRN ×3 (08:09→17:45)
[2016-09-11] MEDS: Polyethylene Glycol 3350 Powder 17 GM Packet PO SCH (08:10)
[2016-09-11] MEDS: Enoxaparin 40 MG/0.4 ML Syringe SUBCUT SCH (08:10)
[2016-09-11] MEDS: Amoxicillin/Clavulanate K 875-125 MG Tab PO SCH ×2 (08:11→17:45)
[2016-09-11] MEDS: Aspirin 81 MG Tab.Chew PO SCH (08:11)
[2016-09-11] MEDS: Ferrous Sulfate 325 MG Tab PO SCH ×2 (08:11→17:45)
[2016-09-11] MEDS: Fluticasone Propionate 110 MCG/Puff 12 GM Inhaler INH SCH ×2 (08:11→20:23)
[2016-09-11] MEDS: Sertraline 50 MG Tab PO SCH (08:12)
[2016-09-11] MEDS: Multivitamins with Minerals/Iron/Folic Acid/Lycopene Tab PO SCH (08:12)
[2016-09-11] MEDS: Magnesium Oxide 500 MG Tab PO SCH (08:12)
[2016-09-11] MEDS: Gabapentin 100 MG Cap PO SCH ×3 (08:12→20:23)
[2016-09-11] MEDS: Acetaminophen 325 MG Tab PO PRN ×3 (11:06→20:25)
--- NOTE | 2016-09-11 13:47 | PCM.PN ---
- General Info Date of Service: 09/11/16 Admission Dx/Problem (Free Text): Admission Diagnosis/Problem Admission Diagnosis/Problem Fracture of neck of femur History of present illness: Patient is a 76-year-old white male who is admitted to skilled care secondary to hip fracture with subsequent hip replacement requiring rehabilitation. Patient was initially seen at the [facility] after a fall and injured the left side of his body. Patient was coming out of a vehicle and made a sudden twist and fell on the left side and injured his left hip-x-ray demonstrated left femur fracture. During his acute hospital stay postoperatively patient was noted to have acute blood loss anemia-hemoglobin dropped to 7.5 from his baseline of 13. Patient had significant weakness-received one unit of packed red blood cells-post transfusion hemoglobin improved to 9.5 Patient was admitted to skilled care for further rehabilitation Working diagnosis: Post left femur fracture Status post left total hip arthroplasty secondary to above Recent fall Anemia-acute blood loss Status post blood transfusion Chronic hyperkalemia Elevated alkaline phosphatase History of chronic cholangitis-on prophylactic antibiotics DVT prophylaxis Secondary diagnoses Hyperlipidemia Adult-onset diabetes mellitus Chronic kidney disease Cardiac pacemaker History of endocarditis GERD Hypothyroidism-acquired Panlobular emphysema BPH ____ Patient reports today: Patient reports he feels pretty good Minimal pain Denied any chest pain, shortness breath, nausea, vomiting Normally lives at home with his Nurses report today: Quite weak yet but doing okay History of significant elevated alkaline phosphatase Functional Status: Reports: pain controlled, tolerating diet, ambulating (with assist, walker) - Review of Systems General: Reports: Weakness, Fatigue, Malaise, Appetite (appetite doing okay). Denies: Fever, Chills HEENT: Reports: no symptoms Pulmonary: Reports: no symptoms Cardiovascular: Reports: No Symptoms Gastrointestinal: Reports: No symptoms Genitourinary: Reports: no symptoms Musculoskeletal: Reports: other (Left hip pain-fair control) Neurological: Reports: No Symptoms Psychiatric: Reports: no symptoms - Patient Data Vitals - most recent: Last Vital Signs Temp 98.2 F 09/11/16 06:34 Pulse 87 09/11/16 06:34 Resp 20 09/11/16 06:34 BP 131/79 09/11/16 06:34 Pulse Ox 94 L 09/11/16 06:34 Weight - most recent: 199 lb 12.8 oz I&O - last 24 hours: Intake & Output 09/10/16 09/11/16 09/11/16 22:59 06:59 14:59 Intake Total 390 0 Output Total 200 100 Balance 190 -100 Lab Results last 24 hrs: Laboratory Results - last 24 hr 09/10/16 09/11/16 Range/Units 17:37 06:24 POC Glucose 228 H 196 H (74-106) mg/dl Gregory Results last 24 hrs: Microbiology 09/08/16 17:30 Wound Culture - Final Hip, Left NO GROWTH AFTER 3 DAYS Med Orders - Current: Current Medications Acetaminophen (Tylenol) 650 mg PO Q6H PRN PRN Reason: Pain (Mild 1-3)/fever Last Admin: 09/11/16 11:06 Dose: 650 mg Albuterol (Ventolin Hfa) 0 gm INH Q4H PRN PRN Reason: Shortness of Breath Albuterol/Ipratropium (Duoneb 3.0-0.5 Mg/3 Ml) 3 ml NEB QID PRN PRN Reason: Wheezing Amoxicillin/Clavulanate Potassium (Augmentin 875 Mg/125 Mg) 1 tab PO 0900,1800 [facility] Last Admin: 09/11/16 08:11 Dose: 1 tab Aspirin (Aspirin) 81 mg PO DAILY [facility] Last Admin: 09/11/16 08:11 Dose: 81 mg Enoxaparin Sodium (Lovenox) 40 mg SUBCUT DAILY [facility] Last Admin: 09/11/16 08:10 Dose: 40 mg Ferrous Sulfate (Ferrous Sulfate) 325 mg PO BIDMEALS [facility] Last Admin: 09/11/16 08:11 Dose: 325 mg Fluticasone Propionate (Flovent Hfa 110 Mcg) 0 gm INH BIDRT [facility] Last Admin: 09/11/16 08:11 Dose: 1 puff Gabapentin (Neurontin) 100 mg PO TID [facility] Last Admin: 09/11/16 08:12 Dose: 100 mg Guaifenesin/Codeine Phosphate (Robitussin Ac) 10 ml PO Q4H PRN PRN Reason: Cough Levothyroxine Sodium (Levothyroxine) 25 mcg PO ACBREAKFAST [facility] Last Admin: 09/11/16 06:24 Dose: 25 mcg Magnesium Oxide (Magnesium Oxide) 1,000 mg PO DAILY [facility] Last Admin: 09/11/16 08:12 Dose: 1,000 mg Multivitamins/Minerals (Centrum) 1 tab PO DAILY [facility] Last Admin: 09/11/16 08:12 Dose: 1 tab Omeprazole (Omeprazole) 20 mg PO ACBREAKFAST [facility] Last Admin: 09/11/16 06:25 Dose: 20 mg Oxycodone HCl (Oxycodone) 5 - 10 mg PO Q4H PRN PRN Reason: mod pain (4-6); Severe (7-10) Last Admin: 09/11/16 11:50 Dose: 5 mg Polyethylene Glycol (Miralax) 17 gm PO DAILY [facility] Last Admin: 09/11/16 08:10 Dose: 17 gm Senna/Docusate Sodium (Senna Plus) 2 tab PO DAILY [facility] Last Admin: 09/11/16 08:12 Dose: 2 tab Sertraline HCl (Zoloft) 100 mg PO DAILY [facility] Last Admin: 09/11/16 08:12 Dose: 100 mg Tamsulosin HCl (Flomax) 0.4 mg PO 1800 [facility] Last Admin: 09/10/16 17:39 Dose: 0.4 mg Trospium (Sanctura Xr 24 Hr) 60 mg PO 0700 [facility] Last Admin: 09/11/16 06:25 Dose: 60 mg Discontinued Medications Amoxicillin/Clavulanate Potassium (Augmentin 875 Mg/125 Mg) 1 tab PO BID [facility] Last Admin: 09/07/16 21:00 Dose: Not Given Tamsulosin HCl (Flomax) 0.4 mg PO DAILY [facility] Trospium (Sanctura Xr 24 Hr) 60 mg PO DAILY [facility] - Exam General: alert, oriented, cooperative, no acute distress, other (lying in bed- generalized weakness but does not appear septic or toxic) HEENT: Pupils equal, Pupils reactive, EOMI, Mucous membr. moist/pink. No: Scleral icterus Neck: supple, trachea midline, no JVD, no thyromegaly. No: lymphadenopathy Lungs: Clear to auscultation, Normal respiratory effort Cardiovascular: Regular Rate, Regular Rhythm, No Murmurs Abdomen: bowel sounds present, soft, no tenderness, no distension. No: rigidity , rebound, guarding, tenderness, distension Extremities: edema (left greater than right) Skin: warm, dry, intact Wound/Incisions: healing well, dressing dry and intact, other (left hip wound) Neurological: no new focal deficit, other (Generalized weakness/fatigue) Psy/Mental Status: alert, normal affect, normal mood - Problem List Review Problem List Initiated/Reviewed/Updated: Yes - Assessment Assessment:: Post left femur fracture Status post left total hip arthroplasty secondary to above-gradually recovering Recent fall Anemia-acute blood loss Status post blood transfusion Chronic hyperkalemia Elevated alkaline phosphatase History of chronic cholangitis-on prophylactic antibiotics-asymptomatic at present DVT prophylaxis Secondary diagnoses Hyperlipidemia Adult-onset diabetes mellitus Chronic kidney disease Cardiac pacemaker History of endocarditis GERD Hypothyroidism-acquired Panlobular emphysema BPH - Plan Plan:: Reviewed present treatment regimen-continue same regimen except changes as listed below CBC, CMP in a.m. Continue rehabilitation/physical therapy Visited with patient at length and he agrees with this evaluation treatment plan
[2016-09-11] MEDS: Tamsulosin 0.4 MG Cap.ER PO SCH (17:45)
[2016-09-12] MEDS: Codeine/guaiFENesin 100mg-10 MG/5 ML Syrup 10 ML Cup PO PRN (02:12)
[2016-09-12] MEDS: TROSPIUM 60 MG PO SCH (06:05)
[2016-09-12] MEDS: Levothyroxine 25 MCG Tab PO SCH (06:05)
[2016-09-12] MEDS: Omeprazole 20 MG Cap.CR PO SCH (06:05)
[2016-09-12] MEDS: Fluticasone Propionate 110 MCG/Puff 12 GM Inhaler INH SCH ×2 (08:59→20:04)
[2016-09-12] MEDS: Aspirin 81 MG Tab.Chew PO SCH (08:59)
[2016-09-12] MEDS: Ferrous Sulfate 325 MG Tab PO SCH ×2 (09:00→18:38)
[2016-09-12] MEDS: Amoxicillin/Clavulanate K 875-125 MG Tab PO SCH ×2 (09:00→18:38)
[2016-09-12] MEDS: Gabapentin 100 MG Cap PO SCH ×3 (09:01→20:04)
[2016-09-12] MEDS: Magnesium Oxide 500 MG Tab PO SCH (09:02)
[2016-09-12] MEDS: Polyethylene Glycol 3350 Powder 17 GM Packet PO SCH (09:02)
[2016-09-12] MEDS: Enoxaparin 40 MG/0.4 ML Syringe SUBCUT SCH (09:03)
[2016-09-12] MEDS: Sertraline 50 MG Tab PO SCH (09:03)
[2016-09-12] MEDS: Multivitamins with Minerals/Iron/Folic Acid/Lycopene Tab PO SCH (09:03)
[2016-09-12] MEDS: Acetaminophen 325 MG Tab PO PRN ×2 (09:06→20:04)
[2016-09-12] MEDS: oxyCODONE 5 MG Tab PO PRN (13:48)
[2016-09-12] MEDS: Tamsulosin 0.4 MG Cap.ER PO SCH (18:38)
[2016-09-13] MEDS: Levothyroxine 25 MCG Tab PO SCH (06:11)
[2016-09-13] MEDS: Omeprazole 20 MG Cap.CR PO SCH (06:12)
[2016-09-13] MEDS: TROSPIUM 60 MG PO SCH (06:12)
[2016-09-13] MEDS: Fluticasone Propionate 110 MCG/Puff 12 GM Inhaler INH SCH ×2 (07:54→19:45)
[2016-09-13] MEDS: Polyethylene Glycol 3350 Powder 17 GM Packet PO SCH (08:28)
[2016-09-13] MEDS: Aspirin 81 MG Tab.Chew PO SCH (08:29)
[2016-09-13] MEDS: Multivitamins with Minerals/Iron/Folic Acid/Lycopene Tab PO SCH (08:29)
[2016-09-13] MEDS: Magnesium Oxide 500 MG Tab PO SCH (08:29)
[2016-09-13] MEDS: Amoxicillin/Clavulanate K 875-125 MG Tab PO SCH ×2 (08:29→18:13)
[2016-09-13] MEDS: Ferrous Sulfate 325 MG Tab PO SCH ×2 (08:29→18:13)
[2016-09-13] MEDS: oxyCODONE 5 MG Tab PO PRN ×3 (08:30→21:00)
[2016-09-13] MEDS: Gabapentin 100 MG Cap PO SCH ×3 (08:31→20:57)
[2016-09-13] MEDS: Sertraline 50 MG Tab PO SCH (08:31)
[2016-09-13] MEDS: Enoxaparin 40 MG/0.4 ML Syringe SUBCUT SCH (08:32)
[2016-09-13] MEDS: Tamsulosin 0.4 MG Cap.ER PO SCH (18:13)
[2016-09-14] MEDS: Levothyroxine 25 MCG Tab PO SCH (06:55)
[2016-09-14] MEDS: TROSPIUM 60 MG PO SCH (06:55)
[2016-09-14] MEDS: Omeprazole 20 MG Cap.CR PO SCH (06:55)
[2016-09-14] MEDS: Fluticasone Propionate 110 MCG/Puff 12 GM Inhaler INH SCH ×2 (07:32→20:52)
[2016-09-14] MEDS: oxyCODONE 5 MG Tab PO PRN ×2 (09:20→13:25)
[2016-09-14] MEDS: Aspirin 81 MG Tab.Chew PO SCH (09:25)
[2016-09-14] MEDS: Gabapentin 100 MG Cap PO SCH ×3 (09:25→20:51)
[2016-09-14] MEDS: Magnesium Oxide 500 MG Tab PO SCH (09:25)
[2016-09-14] MEDS: Amoxicillin/Clavulanate K 875-125 MG Tab PO SCH ×2 (09:25→17:46)
[2016-09-14] MEDS: Multivitamins with Minerals/Iron/Folic Acid/Lycopene Tab PO SCH (09:25)
[2016-09-14] MEDS: Sertraline 50 MG Tab PO SCH (09:25)
[2016-09-14] MEDS: Ferrous Sulfate 325 MG Tab PO SCH ×2 (09:25→17:46)
[2016-09-14] MEDS: Polyethylene Glycol 3350 Powder 17 GM Packet PO SCH (09:25)
[2016-09-14] MEDS: Acetaminophen 325 MG Tab PO PRN (11:58)
[2016-09-14] MEDS: Enoxaparin 40 MG/0.4 ML Syringe SUBCUT SCH (12:30)
[2016-09-14] MEDS: Tamsulosin 0.4 MG Cap.ER PO SCH (17:46)
[2016-09-15] MEDS: TROSPIUM 60 MG PO SCH (06:24)
[2016-09-15] MEDS: Omeprazole 20 MG Cap.CR PO SCH (06:24)
[2016-09-15] MEDS: Levothyroxine 25 MCG Tab PO SCH (06:24)
[2016-09-15] MEDS: Fluticasone Propionate 110 MCG/Puff 12 GM Inhaler INH SCH ×2 (07:16→21:22)
[2016-09-15] MEDS: oxyCODONE 5 MG Tab PO PRN ×2 (07:28→12:56)
[2016-09-15] MEDS: Aspirin 81 MG Tab.Chew PO SCH (08:17)
[2016-09-15] MEDS: Sertraline 50 MG Tab PO SCH (08:17)
[2016-09-15] MEDS: Multivitamins with Minerals/Iron/Folic Acid/Lycopene Tab PO SCH (08:17)
[2016-09-15] MEDS: Amoxicillin/Clavulanate K 875-125 MG Tab PO SCH ×2 (08:17→18:41)
[2016-09-15] MEDS: Ferrous Sulfate 325 MG Tab PO SCH ×2 (08:17→18:41)
[2016-09-15] MEDS: Magnesium Oxide 500 MG Tab PO SCH (08:17)
[2016-09-15] MEDS: Polyethylene Glycol 3350 Powder 17 GM Packet PO SCH (08:17)
[2016-09-15] MEDS: Gabapentin 100 MG Cap PO SCH ×3 (08:17→21:23)
[2016-09-15] MEDS: Enoxaparin 40 MG/0.4 ML Syringe SUBCUT SCH (08:18)
--- NOTE | 2016-09-15 11:22 | PCM.PN ---
- General Info Date of Service: 09/15/16 Functional Status: Reports: pain controlled, tolerating diet, ambulating - Review of Systems General: Reports: No Symptoms HEENT: Reports: no symptoms Pulmonary: Reports: no symptoms Cardiovascular: Reports: No Symptoms Gastrointestinal: Reports: No symptoms Musculoskeletal: Denies: back pain Skin: Denies: jaundice, pruritis Neurological: Reports: No Symptoms Psychiatric: Reports: no symptoms - Patient Data Vitals - most recent: Last Vital Signs Temp 96.8 F 09/15/16 07:00 Pulse 84 09/15/16 07:16 Resp 18 09/15/16 07:00 BP 128/72 09/15/16 07:00 Pulse Ox 94 L 09/15/16 07:16 Weight - most recent: 201 lb 8 oz I&O - last 24 hours: Intake & Output 09/14/16 09/15/16 09/15/16 22:59 06:59 14:59 Intake Total 400 100 Output Total 200 Balance 400 -100 Lab Results last 24 hrs: Laboratory Results - last 24 hr 09/14/16 09/15/16 Range/Units 17:44 06:36 POC Glucose 201 H 129 H (74-106) mg/dl Med Orders - Current: Current Medications Acetaminophen (Tylenol) 650 mg PO Q4H PRN PRN Reason: Pain (Mild 1-3)/fever Last Admin: 09/14/16 11:58 Dose: 650 mg Albuterol (Ventolin Hfa) 0 gm INH Q4H PRN PRN Reason: Shortness of Breath Albuterol/Ipratropium (Duoneb 3.0-0.5 Mg/3 Ml) 3 ml NEB QID PRN PRN Reason: Wheezing Amoxicillin/Clavulanate Potassium (Augmentin 875 Mg/125 Mg) 1 tab PO 0900,1800 [facility] Last Admin: 09/15/16 08:17 Dose: 1 tab Aspirin (Aspirin) 81 mg PO DAILY [facility] Last Admin: 09/15/16 08:17 Dose: 81 mg Enoxaparin Sodium (Lovenox) 40 mg SUBCUT DAILY [facility] Last Admin: 09/15/16 08:18 Dose: 40 mg Ferrous Sulfate (Ferrous Sulfate) 325 mg PO BIDMEALS [facility] Last Admin: 09/15/16 08:17 Dose: 325 mg Fluticasone Propionate (Flovent Hfa 110 Mcg) 0 gm INH BIDRT [facility] Last Admin: 09/15/16 07:16 Dose: 2 puff Gabapentin (Neurontin) 100 mg PO TID [facility] Last Admin: 09/15/16 08:17 Dose: 100 mg Guaifenesin/Codeine Phosphate (Robitussin Ac) 10 ml PO Q4H PRN PRN Reason: Cough Last Admin: 09/12/16 02:12 Dose: 10 ml Levothyroxine Sodium (Levothyroxine) 25 mcg PO ACBREAKFAST [facility] Last Admin: 09/15/16 06:24 Dose: 25 mcg Magnesium Oxide (Magnesium Oxide) 1,000 mg PO DAILY [facility] Last Admin: 09/15/16 08:17 Dose: 1,000 mg Multivitamins/Minerals (Centrum) 1 tab PO DAILY [facility] Last Admin: 09/15/16 08:17 Dose: 1 tab Omeprazole (Omeprazole) 20 mg PO ACBREAKFAST [facility] Last Admin: 09/15/16 06:24 Dose: 20 mg Oxycodone HCl (Oxycodone) 5 - 10 mg PO Q4H PRN PRN Reason: mod pain (4-6); Severe (7-10) Last Admin: 09/15/16 07:28 Dose: 5 mg Polyethylene Glycol (Miralax) 17 gm PO DAILY [facility] Last Admin: 09/15/16 08:17 Dose: 17 gm Senna/Docusate Sodium (Senna Plus) 2 tab PO DAILY [facility] Last Admin: 09/15/16 08:17 Dose: 2 tab Sertraline HCl (Zoloft) 100 mg PO DAILY [facility] Last Admin: 09/15/16 08:17 Dose: 100 mg Tamsulosin HCl (Flomax) 0.4 mg PO 1800 [facility] Last Admin: 09/14/16 17:46 Dose: 0.4 mg Trospium (Sanctura Xr 24 Hr) 60 mg PO 0700 [facility] Last Admin: 09/15/16 06:24 Dose: 60 mg Discontinued Medications Acetaminophen (Tylenol) 650 mg PO Q6H PRN PRN Reason: Pain (Mild 1-3)/fever Last Admin: 09/11/16 11:06 Dose: 650 mg Amoxicillin/Clavulanate Potassium (Augmentin 875 Mg/125 Mg) 1 tab PO BID [facility] Last Admin: 09/07/16 21:00 Dose: Not Given Tamsulosin HCl (Flomax) 0.4 mg PO DAILY [facility] Trospium (Sanctura Xr 24 Hr) 60 mg PO DAILY [facility] - Exam Quality Assessment: No: supplemental oxygen General: alert, oriented Neck: supple Lungs: Clear to auscultation, Normal respiratory effort Cardiovascular: Regular Rate, Regular Rhythm Abdomen: bowel sounds present, soft, no tenderness, no distension (Male) Exam: Deferred Back Exam: No: CVA Tenderness (L), CVA Tenderness (R) Skin: warm, dry, intact Psy/Mental Status: alert, normal affect, normal mood - Problem List Review Problem List Initiated/Reviewed/Updated: Yes - Plan Plan:: HISTORY OF PRESENT ILLNESS This 76-year-old gentleman was placed in swing bed status yesterday for rehabilitation do to hip replacement after subsequent fracture. Gentry was initially seen at [facility] after a fall and injured his left side of the body. The patient was coming out of the car and made a sudden twist and had a fall on the left side and injured his left hip-- imaging done demonstrated left femur neck fracture. During his hospital stay postoperatively he had acute blood loss anemia. Hemoglobin dropped to 7.5 from his baseline of 13--with weakness and he received one unit of packed red blood cells. posttransfusion hemoglobin improved to 9.5. ASSESSMENT/PLAN Left femur neck fracture, s/p total hip arthroplasty--related to mechanical fall , here at [facility] swing bed for orthopedic rehabilitation. Anemia, due to blood loss, status post transfusion; post-transfusion hemoglobin improved to 9.5. Will closely monitor Chronic hyperkalemia; on discharge the patient was placed on strict low potassium diet however patient is refusing this. We'll monitor this very carefully. Elevated alkaline phosphatase--this is improving, with history of Recurrent cholangitis, on prophylactic antibiotics, no jaundice or fever, pain, doubtful etiology however we'll carefully monitor these enzymes. DVT prophylaxis, will continue with enoxaparin--stop date placed. SECONDARY DIAGNOSIS Mixed hyperlipidemia Diabetes mellitus Chronic kidney disease Cardiac pacemaker History of endocarditis GERD Hypothyroidism, acquired Panlobular emphysema BPH
[2016-09-15] MEDS: Tamsulosin 0.4 MG Cap.ER PO SCH (18:41)
[2016-09-16] MEDS: oxyCODONE 5 MG Tab PO PRN ×3 (06:13→17:50)
[2016-09-16] MEDS: TROSPIUM 60 MG PO SCH (06:13)
[2016-09-16] MEDS: Levothyroxine 25 MCG Tab PO SCH (06:13)
[2016-09-16] MEDS: Omeprazole 20 MG Cap.CR PO SCH (06:14)
[2016-09-16] MEDS: Fluticasone Propionate 110 MCG/Puff 12 GM Inhaler INH SCH ×2 (08:44→19:56)
[2016-09-16] MEDS: Aspirin 81 MG Tab.Chew PO SCH (08:49)
[2016-09-16] MEDS: Ferrous Sulfate 325 MG Tab PO SCH ×2 (08:49→17:49)
[2016-09-16] MEDS: Amoxicillin/Clavulanate K 875-125 MG Tab PO SCH ×2 (08:49→17:49)
[2016-09-16] MEDS: Multivitamins with Minerals/Iron/Folic Acid/Lycopene Tab PO SCH (08:49)
[2016-09-16] MEDS: Enoxaparin 40 MG/0.4 ML Syringe SUBCUT SCH (08:50)
[2016-09-16] MEDS: Polyethylene Glycol 3350 Powder 17 GM Packet PO SCH (08:50)
[2016-09-16] MEDS: Magnesium Oxide 500 MG Tab PO SCH (08:50)
[2016-09-16] MEDS: Gabapentin 100 MG Cap PO SCH ×4 (08:51→20:37)
[2016-09-16] MEDS: Sertraline 50 MG Tab PO SCH (08:52)
[2016-09-16] MEDS: Acetaminophen 325 MG Tab PO PRN ×2 (09:19→19:54)
[2016-09-16] MEDS: Tamsulosin 0.4 MG Cap.ER PO SCH (17:49)
[2016-09-17] MEDS: TROSPIUM 60 MG PO SCH (06:13)
[2016-09-17] MEDS: Omeprazole 20 MG Cap.CR PO SCH (06:13)
[2016-09-17] MEDS: Levothyroxine 25 MCG Tab PO SCH (06:14)
[2016-09-17] MEDS: Enoxaparin 40 MG/0.4 ML Syringe SUBCUT SCH (08:33)
[2016-09-17] MEDS: Polyethylene Glycol 3350 Powder 17 GM Packet PO SCH (08:33)
[2016-09-17] MEDS: Fluticasone Propionate 110 MCG/Puff 12 GM Inhaler INH SCH ×2 (08:34→20:13)
[2016-09-17] MEDS: Aspirin 81 MG Tab.Chew PO SCH (08:35)
[2016-09-17] MEDS: Ferrous Sulfate 325 MG Tab PO SCH ×2 (08:35→17:26)
[2016-09-17] MEDS: Amoxicillin/Clavulanate K 875-125 MG Tab PO SCH ×2 (08:36→17:26)
[2016-09-17] MEDS: Multivitamins with Minerals/Iron/Folic Acid/Lycopene Tab PO SCH (08:36)
[2016-09-17] MEDS: Gabapentin 100 MG Cap PO SCH ×3 (08:37→20:13)
[2016-09-17] MEDS: Magnesium Oxide 500 MG Tab PO SCH (08:37)
[2016-09-17] MEDS: Sertraline 50 MG Tab PO SCH (08:38)
[2016-09-17] MEDS: oxyCODONE 5 MG Tab PO PRN ×2 (10:24→20:54)
[2016-09-17] MEDS: Acetaminophen 325 MG Tab PO PRN ×2 (14:45→18:40)
[2016-09-17] MEDS: Tamsulosin 0.4 MG Cap.ER PO SCH (17:26)
[2016-09-18] MEDS: TROSPIUM 60 MG PO SCH (06:03)
[2016-09-18] MEDS: Levothyroxine 25 MCG Tab PO SCH (06:04)
[2016-09-18] MEDS: Omeprazole 20 MG Cap.CR PO SCH (06:04)
[2016-09-18] MEDS: Acetaminophen 325 MG Tab PO PRN ×2 (08:13→13:05)
[2016-09-18] MEDS: Fluticasone Propionate 110 MCG/Puff 12 GM Inhaler INH SCH ×2 (08:14→20:14)
[2016-09-18] MEDS: Enoxaparin 40 MG/0.4 ML Syringe SUBCUT SCH (08:14)
[2016-09-18] MEDS: Amoxicillin/Clavulanate K 875-125 MG Tab PO SCH ×2 (08:15→18:06)
[2016-09-18] MEDS: Aspirin 81 MG Tab.Chew PO SCH (08:15)
[2016-09-18] MEDS: Ferrous Sulfate 325 MG Tab PO SCH ×2 (08:15→18:06)
[2016-09-18] MEDS: Multivitamins with Minerals/Iron/Folic Acid/Lycopene Tab PO SCH (08:15)
[2016-09-18] MEDS: Magnesium Oxide 500 MG Tab PO SCH (08:16)
[2016-09-18] MEDS: Polyethylene Glycol 3350 Powder 17 GM Packet PO SCH (08:18)
[2016-09-18] MEDS: Gabapentin 100 MG Cap PO SCH ×3 (08:18→20:14)
[2016-09-18] MEDS: Sertraline 50 MG Tab PO SCH (08:19)
[2016-09-18] MEDS: oxyCODONE 5 MG Tab PO PRN ×2 (16:30→20:40)
[2016-09-18] MEDS: Tamsulosin 0.4 MG Cap.ER PO SCH (18:06)
[2016-09-19] MEDS: Omeprazole 20 MG Cap.CR PO SCH (06:21)
[2016-09-19] MEDS: Levothyroxine 25 MCG Tab PO SCH (06:21)
[2016-09-19] MEDS: Fluticasone Propionate 110 MCG/Puff 12 GM Inhaler INH SCH ×2 (07:54→20:17)
[2016-09-19] MEDS: TROSPIUM 60 MG PO SCH (07:56)
[2016-09-19] MEDS: Ferrous Sulfate 325 MG Tab PO SCH ×2 (07:56→17:38)
[2016-09-19] MEDS: Gabapentin 100 MG Cap PO SCH ×3 (07:59→20:17)
[2016-09-19] MEDS: Magnesium Oxide 500 MG Tab PO SCH (07:59)
[2016-09-19] MEDS: Sertraline 50 MG Tab PO SCH (07:59)
[2016-09-19] MEDS: Polyethylene Glycol 3350 Powder 17 GM Packet PO SCH (07:59)
[2016-09-19] MEDS: Multivitamins with Minerals/Iron/Folic Acid/Lycopene Tab PO SCH (08:00)
[2016-09-19] MEDS: Aspirin 81 MG Tab.Chew PO SCH (08:00)
[2016-09-19] MEDS: Amoxicillin/Clavulanate K 875-125 MG Tab PO SCH ×2 (08:00→17:38)
[2016-09-19] MEDS: Enoxaparin 40 MG/0.4 ML Syringe SUBCUT SCH (08:01)
[2016-09-19] MEDS: Acetaminophen 325 MG Tab PO PRN ×2 (11:44→17:38)
[2016-09-19] MEDS: Tamsulosin 0.4 MG Cap.ER PO SCH (17:38)
[2016-09-19] MEDS: oxyCODONE 5 MG Tab PO PRN (20:17)
[2016-09-20] MEDS: TROSPIUM 60 MG PO SCH (06:00)
[2016-09-20] MEDS: Levothyroxine 25 MCG Tab PO SCH (06:01)
[2016-09-20] MEDS: Omeprazole 20 MG Cap.CR PO SCH (06:01)
[2016-09-20] MEDS: Fluticasone Propionate 110 MCG/Puff 12 GM Inhaler INH SCH ×2 (07:59→20:12)
[2016-09-20] MEDS: Sertraline 50 MG Tab PO SCH (08:31)
[2016-09-20] MEDS: Multivitamins with Minerals/Iron/Folic Acid/Lycopene Tab PO SCH (08:31)
[2016-09-20] MEDS: oxyCODONE 5 MG Tab PO PRN ×2 (08:34→20:13)
[2016-09-20] MEDS: Magnesium Oxide 500 MG Tab PO SCH (08:35)
[2016-09-20] MEDS: Enoxaparin 40 MG/0.4 ML Syringe SUBCUT SCH (08:37)
[2016-09-20] MEDS: Amoxicillin/Clavulanate K 875-125 MG Tab PO SCH ×2 (08:37→18:20)
[2016-09-20] MEDS: Ferrous Sulfate 325 MG Tab PO SCH ×2 (08:37→18:20)
[2016-09-20] MEDS: Aspirin 81 MG Tab.Chew PO SCH (08:37)
[2016-09-20] MEDS: Gabapentin 100 MG Cap PO SCH ×3 (08:37→20:13)
[2016-09-20] MEDS: Polyethylene Glycol 3350 Powder 17 GM Packet PO SCH (08:51)
[2016-09-20] MEDS: Acetaminophen 325 MG Tab PO PRN ×2 (12:51→18:20)
[2016-09-20] MEDS: Tamsulosin 0.4 MG Cap.ER PO SCH (18:20)
[2016-09-20] MEDS: Codeine/guaiFENesin 100mg-10 MG/5 ML Syrup 10 ML Cup PO PRN (20:13)
[2016-09-20] MEDS: Menthol 7.6 MG Sugar Free Lozenge PO PRN (20:13)
[2016-09-21] MEDS: Levothyroxine 25 MCG Tab PO SCH (06:02)
[2016-09-21] MEDS: Omeprazole 20 MG Cap.CR PO SCH (06:02)
[2016-09-21] MEDS: TROSPIUM 60 MG PO SCH (06:03)
[2016-09-21] MEDS: Fluticasone Propionate 110 MCG/Puff 12 GM Inhaler INH SCH ×2 (08:05→20:41)
[2016-09-21] MEDS: Polyethylene Glycol 3350 Powder 17 GM Packet PO SCH (08:05)
[2016-09-21] MEDS: Aspirin 81 MG Tab.Chew PO SCH (08:06)
[2016-09-21] MEDS: Ferrous Sulfate 325 MG Tab PO SCH ×2 (08:06→17:47)
[2016-09-21] MEDS: Sertraline 50 MG Tab PO SCH (08:07)
[2016-09-21] MEDS: Enoxaparin 40 MG/0.4 ML Syringe SUBCUT SCH (08:07)
[2016-09-21] MEDS: Magnesium Oxide 500 MG Tab PO SCH (08:07)
[2016-09-21] MEDS: Gabapentin 100 MG Cap PO SCH ×3 (08:07→20:41)
[2016-09-21] MEDS: Amoxicillin/Clavulanate K 875-125 MG Tab PO SCH ×2 (08:07→17:47)
[2016-09-21] MEDS: Multivitamins with Minerals/Iron/Folic Acid/Lycopene Tab PO SCH (08:07)
--- NOTE | 2016-09-21 10:24 | PCM.PN ---
- General Info Date of Service: 09/21/16 - Review of Systems General: Denies: Fever, Weakness HEENT: Reports: no symptoms Pulmonary: Reports: no symptoms Cardiovascular: Reports: No Symptoms Gastrointestinal: Reports: No symptoms Genitourinary: Reports: no symptoms Musculoskeletal: Reports: no symptoms Skin: Reports: no symptoms Neurological: Reports: No Symptoms Psychiatric: Reports: no symptoms - Patient Data Vitals - most recent: Last Vital Signs Temp 97.5 F 09/21/16 06:05 Pulse 84 09/21/16 06:05 Resp 20 09/21/16 06:05 BP 116/73 09/21/16 06:05 Pulse Ox 93 L 09/21/16 06:05 Weight - most recent: 196 lb 1 oz I&O - last 24 hours: Intake & Output 09/20/16 09/21/16 09/21/16 22:59 06:59 14:59 Intake Total 700 100 Output Total 100 650 Balance 600 -550 Lab Results last 24 hrs: Laboratory Results - last 24 hr 09/21/16 Range/Units 06:09 POC Glucose 132 H (74-106) mg/dl Med Orders - Current: Current Medications Acetaminophen (Tylenol) 650 mg PO Q4H PRN PRN Reason: Pain (Mild 1-3)/fever Last Admin: 09/20/16 18:20 Dose: 650 mg Albuterol (Ventolin Hfa) 0 gm INH Q4H PRN PRN Reason: Shortness of Breath Albuterol/Ipratropium (Duoneb 3.0-0.5 Mg/3 Ml) 3 ml NEB QID PRN PRN Reason: Wheezing Amoxicillin/Clavulanate Potassium (Augmentin 875 Mg/125 Mg) 1 tab PO 0900,1800 [facility] Last Admin: 09/21/16 08:07 Dose: 1 tab Aspirin (Aspirin) 81 mg PO DAILY [facility] Last Admin: 09/21/16 08:06 Dose: 81 mg Enoxaparin Sodium (Lovenox) 40 mg SUBCUT DAILY [facility] Last Admin: 09/21/16 08:07 Dose: 40 mg Ferrous Sulfate (Ferrous Sulfate) 325 mg PO BIDMEALS [facility] Last Admin: 09/21/16 08:06 Dose: 325 mg Fluticasone Propionate (Flovent Hfa 110 Mcg) 0 gm INH BIDRT [facility] Last Admin: 09/21/16 08:05 Dose: 1 puff Gabapentin (Neurontin) 100 mg PO TID [facility] Last Admin: 09/21/16 08:07 Dose: 100 mg Guaifenesin/Codeine Phosphate (Robitussin Ac) 10 ml PO Q4H PRN PRN Reason: Cough Last Admin: 09/20/16 20:13 Dose: 10 ml Levothyroxine Sodium (Levothyroxine) 25 mcg PO ACBREAKFAST [facility] Last Admin: 09/21/16 06:02 Dose: 25 mcg Magnesium Oxide (Magnesium Oxide) 1,000 mg PO DAILY [facility] Last Admin: 09/21/16 08:07 Dose: 1,000 mg Menthol (Bellamy Sugar Free) 1 bossman PO ASDIRECTED PRN PRN Reason: sore throat and cough Last Admin: 09/20/16 20:13 Dose: 1 bossman Multivitamins/Minerals (Centrum) 1 tab PO DAILY [facility] Last Admin: 09/21/16 08:07 Dose: 1 tab Omeprazole (Omeprazole) 20 mg PO ACBREAKFAST [facility] Last Admin: 09/21/16 06:02 Dose: 20 mg Oxycodone HCl (Oxycodone) 5 - 10 mg PO Q4H PRN PRN Reason: mod pain (4-6); Severe (7-10) Last Admin: 09/20/16 20:13 Dose: 5 mg Polyethylene Glycol (Miralax) 17 gm PO DAILY [facility] Last Admin: 09/21/16 08:05 Dose: 17 gm Senna/Docusate Sodium (Senna Plus) 2 tab PO DAILY [facility] Last Admin: 09/21/16 08:07 Dose: 2 tab Sertraline HCl (Zoloft) 100 mg PO DAILY [facility] Last Admin: 09/21/16 08:07 Dose: 100 mg Tamsulosin HCl (Flomax) 0.4 mg PO 1800 [facility] Last Admin: 09/20/16 18:20 Dose: 0.4 mg Trospium (Sanctura Xr 24 Hr) 60 mg PO 0700 [facility] Last Admin: 09/21/16 06:03 Dose: 60 mg Discontinued Medications Acetaminophen (Tylenol) 650 mg PO Q6H PRN PRN Reason: Pain (Mild 1-3)/fever Last Admin: 09/11/16 11:06 Dose: 650 mg Amoxicillin/Clavulanate Potassium (Augmentin 875 Mg/125 Mg) 1 tab PO BID [facility] Last Admin: 09/07/16 21:00 Dose: Not Given Tamsulosin HCl (Flomax) 0.4 mg PO DAILY [facility] Trospium (Sanctura Xr 24 Hr) 60 mg PO DAILY [facility] - Exam Quality Assessment: No: supplemental oxygen General: alert, oriented Neck: supple Lungs: Clear to auscultation, Normal respiratory effort Cardiovascular: Regular Rate, Regular Rhythm Skin: warm, dry, intact, other (no dehiscence) - Problem List Review Problem List Initiated/Reviewed/Updated: Yes - My Orders Last 24 Hours: My Active Orders 09/20/16 18:09 Menthol [Bellamy Sugar Free] 1 bossman PO ASDIRECTED PRN - Plan Plan:: HISTORY OF PRESENT ILLNESS This 76-year-old gentleman was placed in swing bed status yesterday for rehabilitation do to hip replacement after subsequent fracture. Gentry was initially seen at [facility] after a fall and injured his left side of the body. The patient was coming out of the car and made a sudden twist and had a fall on the left side and injured his left hip-- imaging done demonstrated left femur neck fracture. During his hospital stay postoperatively he had acute blood loss anemia. Hemoglobin dropped to 7.5 from his baseline of 13--with weakness and he received one unit of packed red blood cells. posttransfusion hemoglobin improved to 9.5. ASSESSMENT/PLAN Left femur neck fracture, s/p total hip arthroplasty--related to mechanical fall , here at [facility] swing bed for orthopedic rehabilitation--progressing nicely could be discharged tomorrow. Anemia, due to blood loss, status post transfusion; post-transfusion hemoglobin improved to 9.5. Will closely monitor Chronic hyperkalemia; on discharge the patient was placed on strict low potassium diet however patient is refusing this. We'll monitor this very carefully. Elevated alkaline phosphatase--this is improving, with history of Recurrent cholangitis, on prophylactic antibiotics, no jaundice or fever, pain, DVT prophylaxis, will continue with enoxaparin--stop date placed. SECONDARY DIAGNOSIS Mixed hyperlipidemia Diabetes mellitus Chronic kidney disease Cardiac pacemaker History of endocarditis GERD Hypothyroidism, acquired Panlobular emphysema BPH Overall plan, continue with physical therapy, and doing well, likely anticipate discharge tomorrow. Will assess potassium level today and hemoglobin--patient has refused low potassium diet
[2016-09-21] MEDS: oxyCODONE 5 MG Tab PO PRN ×2 (13:37→20:41)
[2016-09-21] MEDS: Tamsulosin 0.4 MG Cap.ER PO SCH (17:47)
[2016-09-21] MEDS: Menthol 7.6 MG Sugar Free Lozenge PO PRN (20:42)
[2016-09-22] MEDS: Omeprazole 20 MG Cap.CR PO SCH (05:59)
[2016-09-22] MEDS: Levothyroxine 25 MCG Tab PO SCH (05:59)
[2016-09-22] MEDS: TROSPIUM 60 MG PO SCH (05:59)
[2016-09-22 06:12] VITALS: BP 136/75
[2016-09-22] MEDS: Fluticasone Propionate 110 MCG/Puff 12 GM Inhaler INH SCH (08:32)
[2016-09-22] MEDS: Magnesium Oxide 500 MG Tab PO SCH (08:33)
[2016-09-22] MEDS: Aspirin 81 MG Tab.Chew PO SCH (08:33)
[2016-09-22] MEDS: Enoxaparin 40 MG/0.4 ML Syringe SUBCUT SCH (08:33)
[2016-09-22] MEDS: Polyethylene Glycol 3350 Powder 17 GM Packet PO SCH (08:33)
[2016-09-22] MEDS: Amoxicillin/Clavulanate K 875-125 MG Tab PO SCH (08:33)
[2016-09-22] MEDS: Multivitamins with Minerals/Iron/Folic Acid/Lycopene Tab PO SCH (08:33)
[2016-09-22] MEDS: Gabapentin 100 MG Cap PO SCH (08:34)
[2016-09-22] MEDS: Sertraline 50 MG Tab PO SCH (08:34)
[2016-09-22] MEDS: Ferrous Sulfate 325 MG Tab PO SCH (08:37)
--- NOTE | 2016-09-23 08:11 | DISCH ---
Admitted in a swing bed on 09/07/2016, discharged from swing bed on 09/22/2016. FINAL DIAGNOSES: 1. Status post left femur neck fracture with status post total hip arthroplasty due to mechanical fall. 2. Anemia due to blood loss. 3. Chronic hyperkalemia, on low potassium diet. 4. Elevated alkaline phosphatase, improving. 5. History of recurrent cholangitis. 6. DVT prophylaxis. No longer on enoxaparin as the day of discharge. SECONDARY DIAGNOSIS: 1. Mixed hyperlipidemia. 2. Diabetes mellitus. 3. Chronic kidney disease. 4. Cardiac pacemaker. 5. History of endocarditis. 6. GERD. 7. Hypothyroidism. 8. Panlobular emphysema. 9. BPH. HISTORY: A 76-year-old gentleman who was placed in swing bed status for rehabilitation after he had a hip replaced due to a subsequent mechanical fall. He was initially seen at [facility] after a fall, injured his left side of his body, he is coming out of his car, made a sudden twist, and had a fall on his left side injuring his left hip. Imaging was done, demonstrated left femur neck fracture. [facility]. During his hospital stay up in [place] postoperatively, he had acute blood loss anemia. His hemoglobin dropped to 7.5 from his baseline of around 13. He had significant weakness. He did receive blood transfusions while there. HOSPITAL COURSE: Hospital course was quite uneventful. He did have elevated liver enzymes. We were trending these. They did trend down. He had no signs or symptoms of recurrent cholangitis. No jaundice, no vomiting. He tolerated his meals. Otherwise, he did refuse a low-potassium diet. He was counseled on this and monitor the potassium carefully. He did get as high as 5.7. He had no drainage from his wound. He received physical therapy, progressed well, continued with Lovenox for 12 days that was discontinued on day of discharge. Microbiology report, wound culture of left hip: No growth after 3 days. DISCHARGE LABORATORY DATA: White count 9.7, hemoglobin 9.0. Sodium 133, potassium 5.5 (3.3 to 5.3), BUN 34, creatinine 1.25, calcium 8.4, blood glucose 97. LFTs 370 that is down from 676. Vital signs on discharge: Weight 196, temperature 97.6, heart rate 80, blood pressure 136/75, respiratory rate 20, O2 sats 94% on room air. MEDICATIONS: 1. Ferrous sulfate 325 one p.o. b.i.d. 2. Oxycodone 5 mg one tablet every 4-6 hours as needed for moderate pain, #20 given. The patient can continue on all other home medications. The patient had no adverse reactions or allergic reactions to any treatments and/or procedures. Dietary Recommendations: Handout given for low-potassium diet. DISPOSITION: The patient will be discharged from the hospital. He will receive physical therapy twice a week with Aren at PT at [facility]. He will follow up with his primary care provider, Dr. Solorio, next Tuesday. Recommendations at followup: Check potassium and LFTs, reinforce low-potassium diet. Order DEXA scan. Check hemoglobin. Set up for the patient to see Dr. Woods at the [facility]. MEDICAL DECISION MAKIN minutes was spent on this discharge planning and process and care coordination. /[id number]/MODL MTDD
== END 2016-09-22 12:20 | disposition home or self-care (01) | DRG 561 ==
LOC: KA.MS 09-07 13:20
PROVIDERS: ADMIT Nurse Practitioner Family; ATTEND Nurse Practitioner Family
DX: Z47.1 Aftercare following joint replacement surgery (principal); D50.0 Iron deficiency anemia secondary to blood loss (chronic); E87.5 Hyperkalemia; R79.89 Other specified abnormal findings of blood chemistry; E78.5 Hyperlipidemia, unspecified; E11.9 Type 2 diabetes mellitus without complications; N18.9 Chronic kidney disease, unspecified; K21.9 Gastro-esophageal reflux disease without esophagitis; E03.9 Hypothyroidism, unspecified; J43.1 Panlobular emphysema; N40.0 Benign prostatic hyperplasia without lower urinary tract symptoms; Z88.8 Allergy status to other drugs, medicaments and biological substances; Z79.82 Long term (current) use of aspirin; Z79.899 Other long term (current) drug therapy; Z96.642 Presence of left artificial hip joint; Z95.0 Presence of cardiac pacemaker
CPT/HCPCS: 36415; 80048; 80053; 80076; 82962; 85018; 85025; 85027; 87070; 94640; 97110-GP; 97162-GP; 97530-GP; A9270-GY; J1650

== ENCOUNTER 2016-10-06 22:37 | Emergency (ER) | payer MEDICARE, OTHER ==
[2016-10-06] MEDS ORDERED: Sodium Chloride 0.9% 1,000 ML IV ONE ×2 (22:41→23:23)
[2016-10-06] MEDS ORDERED: Sodium Chloride 0.9% 5 ML Syringe FLUSH PRN (22:41)
--- NOTE | 2016-10-06 22:53 | EDM.PDOC ---
ED HPI GENERAL MEDICAL PROBLEM - General Chief Complaint: Abdominal Pain Stated Complaint: GI BLEED Time Seen by Provider: 10/06/16 22:42 Source of Information: Reports: Patient, EMS, Family - History of Present Illness INITIAL COMMENTS - FREE TEXT/NARRATIVE: 76 YO WM presents to ER by EMS after near syncopal episode after passing 2 large bloody stools per rectum. Pt reports feeling urge to move his bowels and after passing a large bloody stool he became lightheaded and fell without loss of consciousness. Pt denies any history of GI bleed. Pt has had blood transfusion x 1 in the past after [facility]. Pt denies any chest pain. Pt reports feeling dizzy with associated shortness of breath upon standing. Pt had a blood pressure systolically in the 80's but after IVF bolus is currently 92/50. Onset: Sudden Duration: Hour(s): (1) Location: Reports: Abdomen Severity: Severe Improves with: Reports: Rest Worsens with: Reports: Other (standing) Associated Symptoms: Reports: Shortness of Breath, Weakness. Denies: Confusion , Chest Pain - Related Data Allergies Allergy/AdvReac Type Severity Reaction Status Date / Time piperacillin sodium Allergy Rash Verified 09/07/16 11:03 [From Zosyn] Wavvqou-Poy-Dgi Reductase Allergy Liver Verified 09/07/16 11:03 Inhibitor Problems tazobactam sodium Allergy Rash Verified 09/07/16 11:03 [From Zosyn] chloroprep Allergy Unknown Rash Uncoded 09/07/16 11:03 Home Meds: Home Meds Albuterol [Ventolin HFA] 2 puff INH Q4H PRN 04/25/13 [History] Fluticasone Propionate [Flovent HFA 110 MCG] 2 puff INH BID 04/25/13 [History] Ipratropium/Albuterol Sulfate [Duoneb 0.5 MG-3 MG/3 ML] 3 ml NEB QID PRN [History] Magnesium 1,000 mg PO DAILY 04/25/13 [History] Mutivitamin* 1 tab PO DAILY 04/25/13 [History] Sertraline HCl 100 mg PO DAILY 04/29/13 [History] Levothyroxine 25 mcg PO ACBREAKFAST 04/28/15 [History] Omeprazole 20 mg PO ACBREAKFAST 12/28/15 [History] Trospium Chloride [Trospium Chloride ER] 60 mg PO DAILY 04/28/15 [History] Aspirin 81 mg PO DAILY 07/11/15 [History] Amoxicillin/Potassium Clav [Amox-Clav 875-125 mg Tablet] 1 each PO BID #90 [Rx] Tamsulosin [Flomax] 0.4 mg PO DAILY 09/02/16 [History] Ferrous Sulfate 325 mg PO BIDMEALS #60 tablet 09/22/16 [Rx] Past Medical History HEENT History: Reports: Hard of Hearing, Impaired Vision Cardiovascular History: Reports: Pacemaker Other Cardiovascular History: h/o infected pacemaker post liver abcess; 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 Respiratory History: Reports: Asthma, Bronchitis, Recurrent, COPD Gastrointestinal History: Reports: Cholelithiasis, GI Bleed, Hemorrhoids Genitourinary History: Reports: BPH Other Musculoskeletal History: unstable on feet majority of time uses for balance Neurological History: Reports: Vertigo Psychiatric History: Reports: Depression Endocrine/Metabolic History: Reports: Other (See Below) Other Endocrine/Metabolic History: has hx DM II but since losing weight, does not need to take any meds for it Hematologic History: Reports: Anemia Dermatologic History: Reports: Other (See Below) Other Dermatologic History: scattered bruises to bilat elbows and forearms from fall; 2 healing abrasions to left elbow - Infectious Disease History Infectious Disease History: Reports: Chicken Pox, Measles, Mumps - Past Surgical History Musculoskeletal Surgical History: Reports: Joint Replacement, Other (See Below) Social & Family History - Family History HEENT: Reports: None Cardiac: Reports: None Respiratory: Reports: Other (See Below) GI: Reports: Other (See Below) : Reports: None OBGYN: Reports: None Musculoskeletal: Reports: None Neurological: Reports: None Psychiatric: Reports: None Endocrine/Metabolic: Reports: None Hematologic: Reports: None Immunologic: Reports: None Dermatologic: Reports: None Oncologic: Reports: None - Tobacco Use Smoking Status *Q: Former Smoker Years of Tobacco use: 17 Packs/Tins Daily: 1 Used Tobacco, but Quit: Yes Month Tobacco Last Used: May Second Hand Smoke Exposure: No - Caffeine Use Caffeine Use: Reports: Coffee - Alcohol Use Days Per Week of Alcohol Use: 1 Number of Drinks Per Day: 1 Total Drinks Per Week: 1 - Recreational Drug Use Recreational Drug Use: No - Living Situation & Occupation Living situation: Reports: , with Spouse Occupation: Retired ED ROS GENERAL - Review of Systems Review Of Systems: See Below Constitutional: Reports: No Symptoms HEENT: Reports: No Symptoms Respiratory: Reports: No Symptoms Cardiovascular: Reports: No Symptoms Endocrine: Reports: No Symptoms GI/Abdominal: Reports: Bloody Stool, Hematochezia. Denies: Hematemesis, Melena : Reports: No Symptoms Musculoskeletal: Reports: No Symptoms Skin: Reports: No Symptoms Neurological: Reports: No Symptoms Psychiatric: Reports: No Symptoms Hematologic/Lymphatic: Reports: No Symptoms Immunologic: Reports: No Symptoms ED EXAM, GI/ABD - Physical Exam Exam: See Below Exam Limited By: No Limitations General Appearance: Alert, WD/WN, No Apparent Distress Neck: Normal Inspection, Supple, Non-Tender, Full Range of Motion Respiratory/Chest: No Respiratory Distress, Lungs Clear, Normal Breath Sounds, No Accessory Muscle Use, Chest Non-Tender Cardiovascular: Normal Peripheral Pulses, Regular Rate, Rhythm, No Edema, No Gallop, No JVD, No Murmur, No Rub GI/Abdominal: Normal Bowel Sounds, Soft, Non-Tender, No Organomegaly, No Distention, No Abnormal Bruit, No Mass Rectal (Males) Exam: Bloody Stool, Heme + Stool Back Exam: Normal Inspection, Full Range of Motion, NT Extremities: Normal Inspection, Normal Range of Motion, Non-Tender, Normal Capillary Refill, No Pedal Edema Neurological: Alert, Oriented, CN II-XII Intact, Normal Cognition, Normal Gait, Normal Reflexes, No Motor/Sensory Deficits Psychiatric: Normal Affect, Normal Mood Skin Exam: Warm, Dry, Intact, Normal Color, No Rash Lymphatic: No Adenopathy EKG INTERPRETATION EKG Date: 10/06/16 Time: 22:53 Rhythm: NSR Rate (beats/min): 94 [place]: normal P-wave: present QRS: normal ST-T: normal QT: normal EKG Interpretation Comments: 100% AV paced Course - Orders/Labs/Meds Orders: Active Orders 24 hr Category Date Time Status EKG Documentation Completion [RC] ASDIRECTED Care 10/06/16 22:41 Active Peripheral IV Care [RC] . DIRECTED Care 10/06/16 22:41 Active Chest 1V Frontal [CR] Stat Exams 10/06/16 22:41 Taken BASIC METABOLIC PANEL,BMP [CHEM] Stat Lab 10/06/16 23:10 Received CK W CKMB [CHEM] Stat Lab 10/06/16 23:10 Received INR,PT,PROTHROMBIN TIME [COAG] Stat Lab 10/06/16 23:10 Received PTT,PARTIAL THROMBOPLSTIN TIME [COAG] Stat Lab 10/06/16 23:10 Received TROPONIN I [CHEM] Stat Lab 10/06/16 23:10 Received TYPE AND SCREEN [BBK] Stat Lab 10/06/16 23:10 Received Sodium Chloride 0.9% @ 999 MLS/HR (1000ml) Med 10/06/16 23:23 Ordered Sodium Chloride 0.9% [Normal Saline] 1,000 ml IV .BOLUS Sodium Chloride 0.9% [Syrex Flush] Med 10/06/16 22:41 Active 5 ml FLUSH Q8HR PRN Peripheral IV Insertion Adult [OM.PC] Routine Oth 10/06/16 22:41 Ordered Transfuse PRBC [Transfuse Red Blood Cells] [COMM] Stat Oth 10/06/16 23:41 Ordered EKG 12 Lead [EK] Routine Ther 10/06/16 22:41 Ordered Medication Orders Sodium Chloride (Normal Saline) 1,000 mls @ 999 mls/hr IV .BOLUS ONE Stop: 10/07/16 00:23 Sodium Chloride (Syrex Flush) 5 ml FLUSH Q8HR PRN PRN Reason: Keep Vein Open Labs: Laboratory Tests 10/06/16 Range/Units 23:10 WBC 10.3 H (5.0-10.0) 10^3/uL RBC 2.96 L (4.50-6.00) 10^6/uL Hgb 9.0 L (13.0-17.0) g/dL Hct 26.5 L (40.0-52.0) % MCV 89.5 (82.0-92.0) fL MCH 30.0 (27.0-31.0) pg MCHC 33.5 (32.0-36.0) g/dL RDW 14.0 (11.5-14.5) % Plt Count 364 H (150-300) 10^3/uL MPV 6.8 L (7.4-10.4) fL Neut % (Auto) 79.6 H (50.0-70.0) % Lymph % (Auto) 9.7 L (20.0-40.0) % [place] % (Auto) 6.9 (2.0-8.0) % Eos % (Auto) 3.4 H (1.0-3.0) % Baso % (Auto) 0.4 (0.0-1.0) % Neut # (Auto) 8.2 H (2.5-7.0) 10^3/uL Lymph # (Auto) 1.0 (1.0-4.0) 10^3/uL [place] # (Auto) 0.7 (0.1-0.8) 10^3/uL Eos # (Auto) 0.4 H (0.1-0.3) 10^3/uL Baso # (Auto) 0.0 (0.0-0.1) 10^3/uL Meds: Medications Generic Name Dose Route Start Last Admin Trade Name Freq PRN Reason Stop Dose Admin Sodium Chloride 1,000 mls @ 999 mls/hr 10/06/16 23:23 Normal Saline IV 10/07/16 00:23 .BOLUS ONE Sodium Chloride 5 ml 10/06/16 22:41 Syrex Flush FLUSH Q8HR PRN Keep Vein Open Discontinued Medications Generic Name Dose Route Start Last Admin Trade Name Freq PRN Reason Stop Dose Admin Sodium Chloride 1,000 mls @ 999 mls/hr 10/06/16 22:41 Normal Saline IV 10/06/16 23:41 .BOLUS ONE - Radiology Interpretation Free Text/Narrative:: CXR- NAD Departure - Departure Time of Disposition: 23:44 Disposition: DC/Tfer to Acute Hospital 02 Condition: serious Clinical Impression: GI bleeding Qualifiers: GI bleed type/associated pathology: unspecified gastrointestinal hemorrhage type Qualified Code(s): K92.2 - Gastrointestinal hemorrhage, unspecified - Discharge Information Referrals: Marv Prather MD [Primary Care Provider] - Forms: Interfacility Transfer EMTALA - My Orders Last 24 Hours: My Active Orders 10/06/16 22:41 EKG Documentation Completion [RC] ASDIRECTED Peripheral IV Care [RC] . DIRECTED Chest 1V Frontal [CR] Stat Sodium Chloride 0.9% [Syrex Flush] 5 ml FLUSH Q8HR PRN Peripheral IV Insertion Adult [OM.PC] Routine EKG 12 Lead [EK] Routine 10/06/16 23:10 BASIC METABOLIC PANEL,BMP [CHEM] Stat CK W CKMB [CHEM] Stat INR,PT,PROTHROMBIN TIME [COAG] Stat PTT,PARTIAL THROMBOPLSTIN TIME [COAG] Stat TROPONIN I [CHEM] Stat TYPE AND SCREEN [BBK] Stat 10/06/16 23:23 Sodium Chloride 0.9% @ 999 MLS/HR (1000ml) Sodium Chloride 0.9% [Normal Saline] 1,000 ml IV .BOLUS 10/06/16 23:41 Transfuse PRBC [Transfuse Red Blood Cells] [COMM] Stat - Assessment/Plan Last 24 Hours: My Active Orders 10/06/16 22:41 EKG Documentation Completion [RC] ASDIRECTED Peripheral IV Care [RC] . DIRECTED Chest 1V Frontal [CR] Stat Sodium Chloride 0.9% [Syrex Flush] 5 ml FLUSH Q8HR PRN Peripheral IV Insertion Adult [OM.PC] Routine EKG 12 Lead [EK] Routine 10/06/16 23:10 BASIC METABOLIC PANEL,BMP [CHEM] Stat CK W CKMB [CHEM] Stat INR,PT,PROTHROMBIN TIME [COAG] Stat PTT,PARTIAL THROMBOPLSTIN TIME [COAG] Stat TROPONIN I [CHEM] Stat TYPE AND SCREEN [BBK] Stat 10/06/16 23:23 Sodium Chloride 0.9% @ 999 MLS/HR (1000ml) Sodium Chloride 0.9% [Normal Saline] 1,000 ml IV .BOLUS 10/06/16 23:41 Transfuse PRBC [Transfuse Red Blood Cells] [COMM] Stat Assessment:: 1. GI bleed- lower 2. near syncope Plan: 1. transfer to [facility] for higher level of care and GI specialist 2. blood transfusion 3. IVF 150cc/hr 4. oxygen [place] at 2L
[2016-10-06 23:56] LABS: CHLORIDE,CL 108 mmol/L (98-115); SODIUM,NA 140 mmol/L (136-145)
[2016-10-07 01:31] VITALS: BP 110/54
== END 2016-10-07 00:18 ==
LOC: KA.ED 22:37
DX: K92.2 Gastrointestinal hemorrhage, unspecified (principal); F32.9 Major depressive disorder, single episode, unspecified; J45.909 Unspecified asthma, uncomplicated; J44.9 Chronic obstructive pulmonary disease, unspecified; Z95.0 Presence of cardiac pacemaker; Z86.2 Personal history of diseases of the blood and blood-forming organs and certain disorders involving the immune mechanism; Z98.890 Other specified postprocedural states; Z87.891 Personal history of nicotine dependence; Z79.82 Long term (current) use of aspirin; Z79.899 Other long term (current) drug therapy; Z88.8 Allergy status to other drugs, medicaments and biological substances
CPT/HCPCS: 36415; 71010; 80048; 82550; 82553; 84484; 85025; 85610; 85730; 96360; 99285; J7030; 93005

== ENCOUNTER 2017-09-10 19:17 | Inpatient (IN) | payer MEDICARE, OTHER ==
--- NOTE | 2017-09-10 19:57 | EDM.PDOC ---
ED HPI GENERAL MEDICAL PROBLEM - General Chief Complaint: Fever Stated Complaint: FEVER, NAUSEA Time Seen by Provider: 09/10/17 19:37 Source of Information: Reports: Patient, Significant Other History Limitations: Reports: No Limitations - History of Present Illness INITIAL COMMENTS - FREE TEXT/NARRATIVE: Patient brought to ER by with complaint of general weakness, cough, fever, chills and diaphoresis. The cough started yesterday and the rest was today. He has had pneumonia a few times in the last 1-2 years along with several other medical problems and surgeries. - Related Data Allergies Allergy/AdvReac Type Severity Reaction Status Date / Time piperacillin sodium Allergy Rash Verified 09/10/17 19:29 [From Zosyn] Ahvtlem-Pcb-Hqw Reductase Allergy Liver Verified 09/10/17 19:29 Inhibitor Problems tazobactam sodium Allergy Rash Verified 09/10/17 19:29 [From Zosyn] chloroprep Allergy Unknown Rash Uncoded 09/10/17 19:29 Home Meds: Home Meds Albuterol [Ventolin HFA] 2 puff INH Q4H PRN 04/25/13 [History] Fluticasone Propionate [Flovent HFA 110 MCG] 2 puff INH BID PRN 04/25/13 [ History] Ipratropium/Albuterol Sulfate [Duoneb 0.5 MG-3 MG/3 ML] 3 ml NEB QID PRN [History] Magnesium 1,000 mg PO DAILY 04/25/13 [History] Mutivitamin* 1 tab PO DAILY 04/25/13 [History] Sertraline HCl 100 mg PO DAILY 04/29/13 [History] Levothyroxine 25 mcg PO ACBREAKFAST 04/28/15 [History] Omeprazole 20 mg PO ACBREAKFAST 04/28/15 [History] Trospium Chloride [Trospium Chloride ER] 60 mg PO DAILY 04/28/15 [History] Amoxicillin/Potassium Clav [Amox-Clav 875-125 mg Tablet] 1 each PO BID #90 07/13 [Rx] Tamsulosin [Flomax] 0.4 mg PO BEDTIME 09/02/16 [History] Sennosides/Docusate Sodium [Sennosides-Docusate Sodium] 2 each PO DAILY [History] Past Medical History HEENT History: Reports: Hard of Hearing, Impaired Vision Cardiovascular History: Reports: Pacemaker Other Cardiovascular History: h/o infected pacemaker post liver abcess; 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 Respiratory History: Reports: Asthma, Bronchitis, Recurrent, COPD Gastrointestinal History: Reports: Cholelithiasis, GI Bleed, Hemorrhoids Genitourinary History: Reports: BPH Other Musculoskeletal History: unstable on feet majority of time uses for balance Neurological History: Reports: Vertigo Psychiatric History: Reports: Depression Endocrine/Metabolic History: Reports: Other (See Below) Other Endocrine/Metabolic History: has hx DM II but since losing weight, does not need to take any meds for it Hematologic History: Reports: Anemia Dermatologic History: Reports: Other (See Below) Other Dermatologic History: scattered bruises to bilat elbows and forearms from fall; 2 healing abrasions to left elbow - Infectious Disease History Infectious Disease History: Reports: Chicken Pox, Measles, Mumps - Past Surgical History Musculoskeletal Surgical History: Reports: Joint Replacement, Other (See Below) Social & Family History - Family History HEENT: Reports: None Cardiac: Reports: None Respiratory: Reports: Other (See Below) GI: Reports: Other (See Below) : Reports: None OBGYN: Reports: None Musculoskeletal: Reports: None Neurological: Reports: None Psychiatric: Reports: None Endocrine/Metabolic: Reports: None Hematologic: Reports: None Immunologic: Reports: None Dermatologic: Reports: None Oncologic: Reports: None - Caffeine Use Caffeine Use: Reports: Coffee - Living Situation & Occupation Living situation: Reports: , with Spouse Occupation: Retired ED ROS GENERAL - Review of Systems Review Of Systems: See Below Constitutional: Reports: Fever, Chills, Malaise, Weakness, Fatigue, Diaphoresis HEENT: Reports: No Symptoms Respiratory: Reports: Shortness of Breath, Cough Cardiovascular: Denies: Chest Pain, Lightheadedness, Syncope Endocrine: Reports: Polyuria GI/Abdominal: Reports: Vomiting (today). Denies: Decreased Appetite : Reports: Frequency (fairly chronic). Denies: Dysuria, Flank Pain, Urinary Retention Musculoskeletal: Reports: No Symptoms Skin: Reports: Diaphoresis. Denies: Cyanosis, Jaundice, Mottled, Pallor Neurological: Denies: Confusion, Dizziness, Headache, Seizure, Change in Speech Psychiatric: Denies: Agitation, Anxiety, Confusion ED EXAM, GENERAL - Physical Exam Exam: See Below Exam Limited By: No Limitations General Appearance: Alert, No Apparent Distress, Obese Eye Exam: Bilateral Eye: EOMI, Normal Inspection, PERRL Ears: Normal External Exam, Hearing Grossly Normal Nose: Normal Inspection, No Blood Throat/Mouth: Normal Inspection, Normal Lips, Normal Voice, No Airway Compromise Head: Atraumatic, Normocephalic Neck: Normal Inspection, Supple, Non-Tender, Full Range of Motion. No: Carotid Bruit Respiratory/Chest: No Accessory Muscle Use, Decreased Breath Sounds (right lower lung). No: Crackles, Rhonchi, Wheezing, Stridor Cardiovascular: Regular Rate, Rhythm, No Edema Peripheral Pulses: 1+: Posterior Tibial (L), Posterior Tibial (R), 2+: Carotid ( L), Carotid (R), Radial (L), Radial (R) GI/Abdominal: Normal Bowel Sounds, Soft, Non-Tender, No Distention Back Exam: Normal Inspection. No: CVA Tenderness (L), CVA Tenderness (R) Extremities: Normal Inspection, Non-Tender, No Pedal Edema Neurological: Alert, Oriented, Normal Cognition, No Motor/Sensory Deficits Psychiatric: Other (Tired, weak vs flat affect) Skin Exam: Warm, Dry, Intact, Normal Color, No Rash Course - Vital Signs Last Recorded V/S: Last Vital Signs Temp 99.4 F 09/10/17 19:37 Pulse 96 09/10/17 19:37 Resp 30 H 09/10/17 19:37 BP 141/85 H 09/10/17 19:37 Pulse Ox 93 L 09/10/17 19:37 - Orders/Labs/Meds Orders: Active Orders 24 hr Category Date Time Status Patient Status [ADT] Routine ADT 09/10/17 21:17 Ordered EKG Documentation Completion [RC] ASDIRECTED Care 09/10/17 20:58 Ordered Chest 2V [CR] Stat Exams 09/10/17 19:50 Ordered CULTURE BLOOD [BC] Stat Lab 09/10/17 19:51 Ordered CULTURE BLOOD [BC] Stat Lab 09/10/17 19:51 Ordered CULTURE SPUTUM + SMEAR [RM] Stat Lab 09/10/17 20:59 Ordered UA W/MICROSCOPIC [URIN] Stat Lab 09/10/17 19:50 Ordered Levofloxacin/Dextrose 5%-Water [Levaquin in D5W 250 MG/ Med 09/10/17 20:59 Ordered 50 ML] 250 mg Premix Bag 1 bag IV ONETIME Levofloxacin/Dextrose 5%-Water [Levaquin in D5W 500 MG/ Med 09/10/17 20:59 Ordered 100 ML] 500 mg Premix Bag 1 bag IV ONETIME Sodium Chloride 0.9% @ 999 MLS/HR (1000ml) Med 09/10/17 21:22 Ordered Sodium Chloride 0.9% [Normal Saline] 1,000 ml IV .BOLUS Blood Culture x2 Reflex Set [OM.PC] Stat Oth 09/10/17 19:50 Ordered EKG 12 Lead [EK] Routine Ther 09/10/17 20:58 Ordered Medication Orders Levofloxacin/Dextrose 250 mg/ (Premix) 50 mls @ 50 mls/hr IV ONETIME ONE Stop: 09/10/17 21:58 Levofloxacin/Dextrose 500 mg/ (Premix) 100 mls @ 100 mls/hr IV ONETIME ONE Stop: 09/10/17 21:58 Sodium Chloride (Normal Saline) 1,000 mls @ 999 mls/hr IV .BOLUS ONE Stop: 09/10/17 22:22 Labs: Laboratory Tests 09/10/17 09/10/17 09/10/17 Range/Units 20:05 20:05 20:40 WBC 11.8 H (5.0-10.0) 10^3/uL RBC 3.99 L (4.50-6.00) 10^6/uL Hgb 12.3 L D (13.0-17.0) g/dL Hct 36.8 L (40.0-52.0) % MCV 92.1 H (82.0-92.0) fL MCH 30.9 (27.0-31.0) pg MCHC 33.5 (32.0-36.0) g/dL RDW 14.1 (11.5-14.5) % Plt Count 164 D (150-300) 10^3/uL MPV 6.9 L (7.4-10.4) fL Neut % (Auto) 87.8 H (50.0-70.0) % Lymph % (Auto) 2.7 L (20.0-40.0) % Pickett % (Auto) 5.1 (2.0-8.0) % Eos % (Auto) 4.4 H (1.0-3.0) % Baso % (Auto) 0.0 (0.0-1.0) % Neut # (Auto) 10.4 H (2.5-7.0) 10^3/uL Lymph # (Auto) 0.3 L (1.0-4.0) 10^3/uL Pickett # (Auto) 0.6 (0.1-0.8) 10^3/uL Eos # (Auto) 0.5 H (0.1-0.3) 10^3/uL Baso # (Auto) 0.0 (0.0-0.1) 10^3/uL Sodium 135 L (136-145) mmol/L Potassium 6.1 H (3.3-5.3) mmol/L Chloride 102 (98-115) mmol/L Carbon Dioxide 22.9 (21.0-32.0) mmol/L BUN 31 H (6-25) mg/dL Creatinine 1.33 H (0.51-1.17) mg/dL Est Cr Clr Drug Dosing 44.29 mL/min Estimated GFR (MDRD) 52 mL/min Glucose 151 H (70-110) mg/dL Lactic Acid 1.4 (0.4-2.0) mmol/L Calcium 9.2 (8.7-10.3) mg/dL Total Bilirubin 1.5 H (0.2-1.0) mg/dL AST 338 H (15-37) U/L ALT 188 H (12-78) U/L Alkaline Phosphatase 474 H (46-116) IU/L Total Protein 7.6 (6.4-8.2) g/dL Albumin 3.12 (3.00-4.80) g/dL Specimen Type Urine Color (YELLOW) Urine Appearance (CLEAR) Urine pH (5.0-9.0) Ur Specific Gower (1.005-1.030) Urine Protein (NEGATIVE) mg/dL Urine Glucose (UA) (NEGATIVE) mg/dL Urine Ketones (NEGATIVE) mg/dL Urine Occult Blood (NEGATIVE) Urine Nitrite (NEGATIVE) Urine Bilirubin (NEGATIVE) Urine Urobilinogen (0.2-1.0) E.U./dL Ur Leukocyte Esterase (NEGATIVE) Urine RBC /HPF Urine WBC /HPF Ur Epithelial Cells /LPF Urine Bacteria (NONE TO FEW) /HPF 09/10/17 Range/Units 20:45 WBC (5.0-10.0) 10^3/uL RBC (4.50-6.00) 10^6/uL Hgb (13.0-17.0) g/dL Hct (40.0-52.0) % MCV (82.0-92.0) fL MCH (27.0-31.0) pg MCHC (32.0-36.0) g/dL RDW (11.5-14.5) % Plt Count (150-300) 10^3/uL MPV (7.4-10.4) fL Neut % (Auto) (50.0-70.0) % Lymph % (Auto) (20.0-40.0) % Pickett % (Auto) (2.0-8.0) % Eos % (Auto) (1.0-3.0) % Baso % (Auto) (0.0-1.0) % Neut # (Auto) (2.5-7.0) 10^3/uL Lymph # (Auto) (1.0-4.0) 10^3/uL Pickett # (Auto) (0.1-0.8) 10^3/uL Eos # (Auto) (0.1-0.3) 10^3/uL Baso # (Auto) (0.0-0.1) 10^3/uL Sodium (136-145) mmol/L Potassium (3.3-5.3) mmol/L Chloride (98-115) mmol/L Carbon Dioxide (21.0-32.0) mmol/L BUN (6-25) mg/dL Creatinine (0.51-1.17) mg/dL Est Cr Clr Drug Dosing mL/min Estimated GFR (MDRD) mL/min Glucose (70-110) mg/dL Lactic Acid (0.4-2.0) mmol/L Calcium (8.7-10.3) mg/dL Total Bilirubin (0.2-1.0) mg/dL AST (15-37) U/L ALT (12-78) U/L Alkaline Phosphatase (46-116) IU/L Total Protein (6.4-8.2) g/dL Albumin (3.00-4.80) g/dL Specimen Type Urincc Urine Color Yellow (YELLOW) Urine Appearance Slightly cloudy H (CLEAR) Urine pH 8.5 (5.0-9.0) Ur Specific Gower 1.015 (1.005-1.030) Urine Protein 100 H (NEGATIVE) mg/dL Urine Glucose (UA) Negative (NEGATIVE) mg/dL Urine Ketones Negative (NEGATIVE) mg/dL Urine Occult Blood Negative (NEGATIVE) Urine Nitrite Negative (NEGATIVE) Urine Bilirubin Small H (NEGATIVE) Urine Urobilinogen 0.2 (0.2-1.0) E.U./dL Ur Leukocyte Esterase Negative (NEGATIVE) Urine RBC 10-20 H /HPF Urine WBC 5-10 H /HPF Ur Epithelial Cells Moderate H /LPF Urine Bacteria Few (NONE TO FEW) /HPF Meds: Medications Generic Name Dose Route Start Last Admin Trade Name Freq PRN Reason Stop Dose Admin Levofloxacin/Dextrose 250 mg/ 50 mls @ 50 mls/hr 09/10/17 20:59 Premix IV 09/10/17 21:58 ONETIME ONE Levofloxacin/Dextrose 500 mg/ 100 mls @ 100 mls/hr 09/10/17 20:59 Premix IV 09/10/17 21:58 ONETIME ONE Sodium Chloride 1,000 mls @ 999 mls/hr 09/10/17 21:22 Normal Saline IV 09/10/17 22:22 .BOLUS ONE Discontinued Medications Generic Name Dose Route Start Last Admin Trade Name Freq PRN Reason Stop Dose Admin Levofloxacin/Dextrose Confirm 09/10/17 21:15 Levaquin In D5w 500 Mg/100 Ml Administered 09/10/17 21:16 Dose 100 mls @ as directed IV .STK-MED ONE - Re-Assessments/Exams Free Text/Narrative Re-Assessment/Exam: 09/10/17 21:00 WBC and ANC are elevated. Potassium is 6.1. Patient has been taking Augmentin 875 bid for 4 years. This may be causing the elevated potassium with the potassium clavulanate; it also changes the empiric treatment from Rocephin/ Zithromax to Levaquin. Still waiting on UA but will start Levaquin as soon as urine is collected. Discussed findings and treatment plan with patient. 09/10/17 21:25 UA is fairly normal. Discussed case (CAP, hyperkalemia, LFTs, etc) with Bandar Saenz who will admit for treatment and management. Discussed findings and treatment plan with patient and his who agree with plan. Patient remained stable throughout ER course and Levaquin was initiated in the ER after cultures and UA were obtained. EKG was done after hyperkalemia found and shows fairly tall T-waves; Bandar will address and treat this as inpatient. Departure - Departure Time of Disposition: 21:23 Disposition: Admitted As Inpatient 65 Condition: Good Clinical Impression: Acute hyperkalemia, Generalized weakness, Elevated liver enzymes CAP (community acquired pneumonia) Qualifiers: Laterality: unspecified laterality Qualified Code(s): J18.9 - Pneumonia, unspecified organism Fever Qualifiers: Fever type: unspecified Qualified Code(s): R50.9 - Fever, unspecified - Discharge Information Referrals: Marv Prather MD [Primary Care Provider] - Forms: ED Department Discharge - My Orders Last 24 Hours: My Active Orders 09/10/17 19:50 Chest 2V [CR] Stat UA W/MICROSCOPIC [URIN] Stat Blood Culture x2 Reflex Set [OM.PC] Stat 09/10/17 19:51 CULTURE BLOOD [BC] Stat CULTURE BLOOD [BC] Stat 09/10/17 20:58 EKG Documentation Completion [RC] ASDIRECTED EKG 12 Lead [EK] Routine 09/10/17 20:59 CULTURE SPUTUM + SMEAR [RM] Stat Levofloxacin/Dextrose 5%-Water [Levaquin in D5W 250 MG/50 ML] 250 mg Premix Bag 1 bag IV ONETIME Levofloxacin/Dextrose 5%-Water [Levaquin in D5W 500 MG/100 ML] 500 mg Premix Bag 1 bag IV ONETIME 09/10/17 21:17 Patient Status [ADT] Routine 09/10/17 21:22 Sodium Chloride 0.9% @ 999 MLS/HR (1000ml) Sodium Chloride 0.9% [Normal Saline] 1,000 ml IV .BOLUS - Assessment/Plan Last 24 Hours: My Active Orders 09/10/17 19:50 Chest 2V [CR] Stat UA W/MICROSCOPIC [URIN] Stat Blood Culture x2 Reflex Set [OM.PC] Stat 09/10/17 19:51 CULTURE BLOOD [BC] Stat CULTURE BLOOD [BC] Stat 09/10/17 20:58 EKG Documentation Completion [RC] ASDIRECTED EKG 12 Lead [EK] Routine 09/10/17 20:59 CULTURE SPUTUM + SMEAR [RM] Stat Levofloxacin/Dextrose 5%-Water [Levaquin in D5W 250 MG/50 ML] 250 mg Premix Bag 1 bag IV ONETIME Levofloxacin/Dextrose 5%-Water [Levaquin in D5W 500 MG/100 ML] 500 mg Premix Bag 1 bag IV ONETIME 09/10/17 21:17 Patient Status [ADT] Routine 09/10/17 21:22 Sodium Chloride 0.9% @ 999 MLS/HR (1000ml) Sodium Chloride 0.9% [Normal Saline] 1,000 ml IV .BOLUS
[2017-09-10] MEDS ORDERED: Levofloxacin/Dextrose 5%-Water 500 MG in Premix Bag 1 BAG IV ONE (20:59)
[2017-09-10] MEDS ORDERED: Levofloxacin/Dextrose 5%-Water 250 MG in Premix Bag 1 BAG IV ONE (20:59)
[2017-09-10] MEDS ORDERED: Levofloxacin/Dextrose 5%-Water 100 ML IV ONE (21:15)
[2017-09-10] MEDS ORDERED: Sodium Chloride 0.9% 1,000 ML IV ONE (21:22)
[2017-09-10] MEDS ORDERED: Sodium Polystyrene Sulfonate 15 GM/60 ML Susp 60 ML Bot PO ONE (22:45)
[2017-09-10] MEDS ORDERED: Sodium Polystyrene Sulfonate 15 GM/60 ML Susp 60 ML Bot ONE (22:45)
[2017-09-10] MEDS ORDERED: Albuterol/Ipratropium 3.0-0.5 MG/3 ML Neb Soln ONE (22:46)
[2017-09-10] MEDS: Albuterol/Ipratropium 3.0-0.5 MG/3 ML Neb Soln NEB SCH (23:26)
[2017-09-11] MEDS: Albuterol/Ipratropium 3.0-0.5 MG/3 ML Neb Soln NEB SCH ×4 (05:15→22:56)
[2017-09-11] MEDS ORDERED: Albuterol HFA 18 Gm Inhaler INH PRN (09:59)
[2017-09-11] MEDS ORDERED: Albuterol/Ipratropium 3.0-0.5 MG/3 ML Neb Soln NEB PRN (10:18)
[2017-09-11] MEDS ORDERED: Fluticasone Propionate 110 MCG/Puff 12 GM Inhaler INH PRN (10:20)
[2017-09-11] MEDS ORDERED: Amoxicillin/Clavulanate K 875-125 MG Tab PO SCH (10:30)
[2017-09-11] MEDS: Sertraline 50 MG Tab PO SCH (10:35)
[2017-09-11] MEDS: Multivitamins with Minerals/Iron/Folic Acid/Lycopene Tab PO SCH (10:35)
[2017-09-11] MEDS: Dextrose 5%-0.45% NaCl 1,000 ML IV SCH (10:35)
[2017-09-11] MEDS: TROSPIUM 60 MG PO SCH (11:18)
[2017-09-11] MEDS: Amoxicillin/Clavulanate K 875-125 MG Tab PO SCH (17:56)
--- NOTE | 2017-09-11 18:06 | HP ---
Today's date is 09/11/2017. HISTORY OF PRESENT ILLNESS: This is a 77-year-old gentleman who was at home with his . He started having the chills and he was really sweaty. His states that he was so sweaty and diaphoretic that he had soaked his shirt. She had to switch his shirt out before she brought him to the emergency room. The patient states he was just shivering with chills. He just was not feeling well. He denied any shortness of breath. He said lately he has had a little bit of a cough. He says this is how he felt when he had pneumonia before. He was brought to the emergency room. At that time, CBC was obtained, which showed a white count elevated at 11.8. Chest x-ray was questionable for pneumonia. He was admitted to the hospital at that time. Today, the patient states he feels way better than yesterday. He says he no longer has the fever and chills. He is no longer sweating. He denies any cough. He says that he is actually able to eat a little bit for breakfast today. PAST MEDICAL HISTORY: The patient has a past medical history of multiple biliary surgeries, hypothyroidism, hypomagnesemia, depression, hyperkalemia, BPH, and overactive bladder. PAST SURGICAL HISTORY: The patient has had multiple biliary and gallbladder reconstructive surgeries. MEDICATIONS: That he was taking at home, he takes senna two tabs daily; Zoloft 100 mg daily; magnesium oxide 1000 mg daily; levothyroxine 25 mcg daily; omeprazole 20 mg daily; he uses a Ventolin inhaler as needed; multivitamin 1 tab daily; Flomax 0.4 mg daily; he takes trospium chloride 60 mg daily. He also uses DuoNebs as needed. He also uses Flovent as needed. He also is on Augmentin 1 tab twice a day at home. ALLERGIES: The patient is allergic to Zosyn, statins, and ChloraPrep. SOCIAL/PERSONAL HISTORY: The patient is retired. He lives at home with his . He denies any alcohol or tobacco use. REVIEW OF SYSTEMS: The patient states he is feeling pretty good this morning. CONSTITUTIONAL: No weight loss. No fever. No chills. No night sweats. Appetite is good. No fatigue. EYES: No recent visual changes. ENT: No sinus congestion or hoarseness. CARDIOVASCULAR: No chest pain or palpitations. RESPIRATORY: No cough. No shortness of breath. GI: No vomiting, diarrhea or melena. : No dysuria or hematuria. MUSCULOSKELETAL: No new bone pain or joint swelling. INTEGUMENTARY: No rash or pruritus. NEUROLOGIC/PSYCHIATRIC: No recent headache or focal weakness. No depressive symptoms. ENDOCRINE: No heat or cold intolerances or polydipsia. HEMATOLOGIC/LYMPHATIC: No excessive bruising or lymph node swelling. ALLERGIC/IMMUNOLOGIC: No hives or recurrent infections. PHYSICAL EXAMINATION: GENERAL: This is an elderly white male in no acute distress. VITAL SIGNS: Temperature is 98.0, pulse is 72, blood pressure is 136/85, respiratory rate 16, and oxygen saturation on room air is 95%. HEENT: Head is normocephalic. EOMs are intact. Pupils are equal, round, and reactive to light and accommodation. NECK: Supple. No JVD. Trachea midline. No pharyngeal erythema noted. NOSE: No nasal congestion noted on exam. LUNGS: Sounds are clear throughout lung zabala except for diminished on the right lower base. CARDIAC: Regular rate and rhythm. No murmurs identified. GI: Abdomen is soft, nondistended, and nontender. EXTREMITIES: Full range of motion. No joint effusions noted. NEUROLOGICAL: Grossly intact. DIAGNOSTIC DATA: The patient had an EKG performed in the emergency room which shows ventricularly paced at 86 beats per minute. The patient's chest x-ray that was obtained in the emergency room, chest x-ray, impression reads 1. Small left-sided pleural effusion, new compared to prior study. 2. No sufficient evidence of acute infiltrate identified. 3. Technical limitations as above. The patient's lab work that was obtained in the emergency room, CBC showed a white count elevated at 11.8, hemoglobin 12.3, ANC was 87.8. Chemistry panel showed a sodium low at 135, potassium is 6.1, BUN 31, creatinine elevated at 1.33. The patient's glucose was elevated at 151. Total bilirubin was elevated at 1.5, AST was 338, ALT was 188, alkaline phosphatase was 474. Rest of the lab was unremarkable. The patient's urinalysis was unremarkable. Repeat lab work that was performed this morning, CBC shows a white count within normal range at 8.0, hemoglobin slightly low at 11.1, ANC is slightly improved to 83.7. The patient's chemistry panel shows a potassium down to 5.1, BUN is down to 29, creatinine is 1.34. The patient's total bilirubin was within normal range at 0.7. The patient's AST is improved to 241, ALT is improved to 173, alkaline phosphatase is improved to 421. Brain natriuretic peptide obtained today is very slightly elevated at 232. Albumin slightly low today at 2.76. Otherwise, all lab work seems to be unremarkable. The patient's magnesium level was in normal range at 1.8. IMPRESSION/PLAN: 1. Right lower lobe pneumonia with small left-sided pleural effusion. Plan: We will continue with Levaquin intravenously 750 mg every 48 hours per pharmacy dosing. We will continue with DuoNebs every 6 hours. The patient's white count had come down from 11.8 to 8.0, seems to be improving clinically. 2. Elevated liver function tests with history of multiple biliary surgeries. The patient's AST came down from 338 to 241. The patient's ALT came down from 188 to 173. The patient's alkaline phosphatase came down from 474 to 421. We will continue to monitor. We will repeat a CMP tomorrow. We will continue with senna two tabs daily along with Augmentin 1 tab twice a day and also omeprazole 20 mg daily in the morning. We are going to start the patient on some IV fluids, D5 one-half normal saline at 50 mL an hour. 3. History of hypothyroidism. Plan: Continue with levothyroxine 25 mcg daily. 4. History of hypomagnesemia. Plan: The patient's magnesium level this morning was within normal range at 1.8. We will continue with magnesium oxide 1000 mg daily. 5. History of depression. Plan: Continue with Zoloft 100 mg daily. 6. History of hyperkalemia. The patient's potassium level when he came in the emergency room last night was elevated at 6.1. I gave him one dose of Kayexalate 30 g this morning, now his potassium is down to 5.1. We will continue to monitor with a CMP tomorrow morning. 7. History of BPH. Plan: Continue with Flomax 0.4 mg daily. 8. History of overactive bladder. We will continue with trospium 60 mg daily to help with overactive bladder. 9. Chronic kidney disease. The patient's GFR is down to 52. I am going to run some IV fluids, D5 one-half normal saline at 50 mL an hour and repeat lab work in the morning to see if his kidney function does improve. He was very diaphoretic upon admission, most likely somewhat dehydrated. /[id number]/MODL
[2017-09-11] MEDS ORDERED: Acetaminophen 325 MG Tab PO PRN (20:35)
[2017-09-11] MEDS: Tamsulosin 0.4 MG Cap.ER PO SCH (20:51)
[2017-09-11] MEDS ORDERED: Levofloxacin/Dextrose 5%-Water 500 MG in Premix Bag 1 BAG IV SCH (21:00)
[2017-09-12] MEDS: Albuterol/Ipratropium 3.0-0.5 MG/3 ML Neb Soln NEB SCH ×4 (05:54→23:54)
[2017-09-12] MEDS: Dextrose 5%-0.45% NaCl 1,000 ML IV SCH (06:26)
[2017-09-12] MEDS: Levothyroxine 25 MCG Tab PO SCH (07:32)
[2017-09-12] MEDS: Omeprazole 20 MG Cap.CR PO SCH (07:32)
[2017-09-12] MEDS: Magnesium Oxide 500 MG Tab PO SCH (08:36)
[2017-09-12] MEDS: Multivitamins with Minerals/Iron/Folic Acid/Lycopene Tab PO SCH (08:36)
[2017-09-12] MEDS: Amoxicillin/Clavulanate K 875-125 MG Tab PO SCH ×2 (08:36→18:21)
[2017-09-12] MEDS: Sertraline 50 MG Tab PO SCH (08:36)
[2017-09-12] MEDS: TROSPIUM 60 MG PO SCH (09:25)
--- NOTE | 2017-09-12 13:17 | PN ---
09/12/2017 PATIENT NAME: HAI WANG SUBJECTIVE: This is a 77-year-old male patient that was admitted through the emergency room. The patient was having fever and chills. He was very diaphoretic. He presented to the emergency room. His white count was elevated at 11.8. The patient was given Levaquin IV in the emergency room for pneumonia. He improved. The patient's lab work had been improving. Today now, the patient states he is feeling good. He has no shortness of breath. No cough. He has had no fever or chills. He states his energy level is getting back to normal. OBJECTIVE: VITAL SIGNS: Today, temperature is 97.5, pulse is 71, blood pressure is 145/81, respiratory rate is 20, oxygen saturation are 94% on room air. GENERAL: This is an elderly white male, in no acute distress. CARDIOVASCULAR: Heart tones are regular rate and rhythm. LUNGS: Lung sounds are clear throughout lung zabala. Slightly diminished at right lower base. ABDOMEN: Soft, nontender, nondistended. Bowel sounds present x4. EXTREMITIES: No pedal edema noted on exam. No diaphoresis noted on exam. The patient no longer pale in color. LABORATORY DATA: The patient's lab work that was obtained today; CBC shows white count within normal range at 6.2, hemoglobin slightly low at 10.9. Chemistry panel today is unremarkable except for kidney function tests are slightly elevated. BUN is slightly elevated at 31, creatinine is elevated at 1.25, GFR is 56. This improved from yesterday when it was 52. The patient's liver enzymes are slowly improving. The patient's AST today is down to 117, ALT is down to 123, alkaline phosphatase down to 410, these are all improvements from admission yesterday. Albumin slightly low at 2.79. The patient's brain natriuretic peptide that was obtained yesterday, which is very slightly elevated at 232. IMPRESSION AND PLAN: 1. Right lower lobe pneumonia with small left-sided pleural effusion. Plan: Continue with Levaquin 750 mg every 40 hours per pharmacy dosing. The patient scheduled to get at 10 p.m. tonight. We will continue with DuoNebs every 6 hours as scheduled. The patient's white count on a CBC today is down to 6.2, which is quite a bit of improvement. 2. Elevated liver function tests with history of multiple biliary surgeries. Plan: The patient's lab work were all improved today. His AST, ALT, and alkaline phosphatase are all improved from previous. We will continue to monitor these. I will order comprehensive metabolic panel for tomorrow morning. I am going to continue with IV fluids of D5 one half normal saline at 50 an hour until the current bag of IV fluids is finished. We will continue with Augmentin 1 tab twice a day along with omeprazole 20 mg daily. The patient was eating fine this morning with no pain or nausea. 3. History of hypothyroidism. Plan: Continue with levothyroxine 25 mcg daily. 4. History of hypomagnesemia. Plan: Continue with magnesium oxide 1000 mg daily. The patient's magnesium level within normal range at 1.8. 5. History of depression. Plan: Continue with Zoloft 100 mg daily. 6. History of hyperkalemia. The patient's potassium level within normal range today at 4.8. The patient was given a one time dose of Kayexalate when he first came in the emergency room due to an elevated potassium level of 6.1. 7. History of benign prostatic hypertrophy. Plan: Continue with Flomax 0.4 mg daily. 8. History of overactive bladder. We will continue with Trospium 60 mg daily. 9. Chronic kidney disease. Plan: The patient's GFR is up today to 56, improved from yesterday was 52. We will continue with that fluids at 50 mL an hour. Repeat a CMP tomorrow morning. OVERALL PLAN: The patient seems to be improving after he gets his Levaquin tonight at 10 p.m. and discontinue his IV fluids. I think the patient can be discharged home tomorrow morning and followed up in the clinic. The patient is doing well. /[id number]/MODL MTDD
[2017-09-12] MEDS: Tamsulosin 0.4 MG Cap.ER PO SCH (20:57)
[2017-09-12] MEDS ORDERED: Levofloxacin/Dextrose 5%-Water 500 MG in Premix Bag 1 BAG IV SCH (21:00)
[2017-09-12] MEDS ORDERED: Levofloxacin/Dextrose 5%-Water 250 MG in Premix Bag 1 BAG IV SCH (22:00)
[2017-09-13] MEDS: Albuterol/Ipratropium 3.0-0.5 MG/3 ML Neb Soln NEB SCH ×2 (05:51→10:03)
[2017-09-13 06:51] VITALS: BP 124/82
[2017-09-13] MEDS: Omeprazole 20 MG Cap.CR PO SCH (07:42)
[2017-09-13] MEDS: Levothyroxine 25 MCG Tab PO SCH (07:42)
[2017-09-13] MEDS: Amoxicillin/Clavulanate K 875-125 MG Tab PO SCH (07:42)
[2017-09-13] MEDS: Magnesium Oxide 500 MG Tab PO SCH (09:54)
[2017-09-13] MEDS: TROSPIUM 60 MG PO SCH (09:55)
[2017-09-13] MEDS: Multivitamins with Minerals/Iron/Folic Acid/Lycopene Tab PO SCH (09:55)
[2017-09-13] MEDS: Sertraline 50 MG Tab PO SCH (09:55)
--- NOTE | 2017-09-14 08:03 | DISCH ---
The patient was admitted into inpatient on 09/10/2017, discharged from inpatient on 09/13/2017. FINAL DIAGNOSES: 1. Right lower lobe pneumonia with a small left-sided pleural effusion, clinically improving. 2. Elevated liver enzymes, improving. 3. History of hypothyroidism. 4. History of hypomagnesemia. 5. History of depression. 6. Hyperkalemia, borderline, much improved. 7. Benign prostatic hypertrophy. 8. Overactive bladder with chronic kidney disease. HISTORY: A 77-year-old gentleman, who was admitted through the emergency department. He was having some fever and chills, quite diaphoretic. Chest x- ray did demonstrate a right lower lobe consolidation. He was given IV Levaquin in the emergency room. He was admitted for further assessment and IV ongoing antibiotics. HOSPITAL COURSE: The patient's hospital course went well. He did have a right lower lobe consolidation. He was given Levaquin IV. He also has Augmentin for chronic elevated liver enzymes. He did well. He was given DuoNebs every 6 hours. We monitored his white count. He did have a slight white count elevation on admission at 11.8 with neutrophilia around 88%, slightly improved on discharge with 83% neutrophilia. However, his white count was normal at 6.2. He did have some slight hyperkalemia, was given one dose of Kayexalate. This has responded. It is now borderline high at 5.5. BUN at discharge is 26, creatinine is 1.25. He did have some elevated liver enzymes. AST on admission was 338, ALT of 188, alkaline phosphatase 474, all trending down. AST 94, ALT 99, 416 on alkaline phosphatase. He did have a low albumin at 2.74, total protein of 7.6. He was ambulatory in the room coughing and deep breathing. We were given microbiology report, it did not show any growth on blood cultures after 2 days. No sputum culture was able to be obtained. He never became hemodynamically unstable. Temperature maximum was 100; blood pressure on discharge was 124/82; temperature of 98.7; heart rate 67; oxygen saturation of 96%, this is on room air; respiratory rate 18. His lungs were clear to auscultation except he did have a little bit of decreased breath sounds in his right lower lobe. However, he had good pulmonary excursion. He was alert and oriented. CV was regular rate and rhythm. The patient had no other complications during his hospital stay. He was ready for discharge. Medication changes/additions on discharge: Levaquin 250 mg p.o. daily due to decreased renal profile every 5 days. He can continue on all of his other home medications. DISPOSITION: The patient will be discharged from the hospital. [facility] has been in contact with the patient regarding his needs at home. Physical Therapy will evaluate him as outpatient to determine his eligibility for a chair lift at home. He will be discharged to home care. He is to report any increase in shortness of breath, fever, weakness, sputum production, or increase in cough. He will be seen as a followup in a few days at [facility]. /[id number]/MODL
== END 2017-09-13 12:43 | disposition home or self-care (01) | DRG 194 ==
LOC: KA.ED 19:17 → KA.MS 21:17
PROVIDERS: ADMIT Physician Assistant Surgical; ATTEND Family Medicine
DX: J18.9 Pneumonia, unspecified organism (principal); R53.1 Weakness; J90 Pleural effusion, not elsewhere classified; R74.8 Abnormal levels of other serum enzymes; R26.81 Unsteadiness on feet; E03.9 Hypothyroidism, unspecified; E11.9 Type 2 diabetes mellitus without complications; E83.42 Hypomagnesemia; F32.9 Major depressive disorder, single episode, unspecified; E87.5 Hyperkalemia; Z95.0 Presence of cardiac pacemaker; N40.0 Benign prostatic hyperplasia without lower urinary tract symptoms; Z88.8 Allergy status to other drugs, medicaments and biological substances; N18.9 Chronic kidney disease, unspecified; N32.81 Overactive bladder; Z79.899 Other long term (current) drug therapy
CPT/HCPCS: 36415; 71046; 80053; 81001; 82962; 83605; 83735; 83880; 85025; 87040; 93005; 94640; 99285; A9270-GY; J1956; J7030; J7042